=== PATIENT | female | born 1990 | race Caucasian/White ===

== ENCOUNTER → 2019-12-26 14:56 | Outpatient (CLI) | payer OTHER, SELFPAY ==
--- NOTE | ~2019-12-26 | US_ITS ---
US breast RT complete 12/26/2019 15:25 Indication: Follow-up right breast masses Procedure: High-resolution ultrasound of the right breast Comparison: Comparison to multiple prior studies sequentially, with oldest reviewed study dated 04/2018. Findings: At 4:00, 4 cm from the nipple there is an oval circumscribed hypoechoic mass with enhanced through transmission, parallel orientation and no internal vascularity. This mass measures 1.9 x 1.5 x 1.2 cm compared with 1.9 x 1.6 x 1.1 cm on prior examination. At 5:00, 3 cm from the nipple, there is an oval hypoechoic mass measuring 8 mm greatest dimension. There is parallel orientation, no signi ficant posterior features or internal vascularity. This mass is unchanged in size allowing for differ ences of technique. At 9:00, 6 cm from the nipple, there is an oval circumscribed hypoechoic mass wit h parallel orientation, circumscribed margins, no posterior acoustic features and no internal vascula rity measuring 10 x 9 x 6 mm, unchanged allowing for differences of technique. At 5:00, 5 cm from the nipple, there is an oval circumscribed hypoechoic mass with parallel orientation measuring 0.65 cm g reatest dimension, unchanged. Impression: 1: Stable right breast masses, likely benign. BI-RADS CATEGORY 3-PROBABLY BENIGN FINDING RECOMMENDATION: 6 month follow up recommended. Reviewed, dictated and finalized at location A. Impression: 1: Stable right breast masses, likely benign. BI-RADS CATEGORY 3-PROBABLY BENIGN FINDING RECOMMENDATION: 6 month follow up recommended.
== END ==
PROVIDERS: PCP Physician Assistant; Visit Provider Nurse Practitioner
DX: N63.10 Unspecified lump in the right breast, unspecified quadrant (principal)
CPT/HCPCS: 76641

== ENCOUNTER → 2020-05-02 15:53 | Outpatient (CLI) | payer OTHER, SELFPAY ==
--- NOTE | ~2020-05-02 | US_ITS ---
EXAMINATION: US OB <= 14 weeks fetus EXAM DATE: 05/02/2020 16:21 INDICATION: Uncertain dates . 1st trimester. TECHNIQUE: Pelvic obstetrical transabdominal sonogram was performed by a technologist. There are mu ltiple grayscale and Doppler images available for interpretation. There are no earlier studies of th is gestation for comparison. FINDINGS: Uterus measures 10.5 x 6.7 x 7.9 cm. There is intrauterine gestation sac. pole with heart rate confirmed at 158 beats per minute. The 4.6 cm crown-rump length corresponds to estimated gestational age by ultrasound of 11 weeks 3 days . There is no sonographic evidence of subchorioni c hemorrhage. Right ovary is morphologically normal, the left is not identified. IMPRESSION: Live intrauterine gestation, age by ultrasound 11 weeks 3 days, NO 11/18/2020. Reviewed, dictated and finalized at location A. LING HOOD OPERATOR
== END ==
PROVIDERS: PCP Family Medicine; Visit Provider Nurse Practitioner
DX: Z36.87 Encounter for antenatal screening for uncertain dates (principal); Z3A.11 11 weeks gestation of pregnancy
CPT/HCPCS: 76801

== ENCOUNTER → 2020-06-21 15:18 | Outpatient (CLI) | payer OTHER, SELFPAY ==
--- NOTE | ~2020-06-21 | US_ITS ---
EXAMINATION: US OB >= 14 weeks Fetus DATE: 06/21/2020 16:05 INDICATION: anatomic survey. TECHNIQUE: Real-time ultrasound of the pelvis was performed. COMPARISON: Ultrasound 05/02/2020 FINDINGS: There is a single living fetus in vertex presentation. The placenta is anterior, 3.9 cm from the cer vix. heart rate is 140 beats per minute (bpm). The amniotic fluid volume is subjectively normal . The following biometric data were obtained: Biparietal diameter (BPD): 4.2 cm; head circumference (HC): 16.2 cm; abdominal circumference (AC): 12 .9 cm; femur length (FL): 2.7 cm. These measurements are concordant. Estimated weight is 238 g +/- 36 g, which correlates with 35th percentile when 11/18/20 is used as estimated date of delivery. As single measurements, these parameters are each equal to the following estimated gestational ages w ith ranges of +/- 2 standard deviations: BPD: 18 weeks 6 days (17 weeks 1 days - 20 weeks 4 days). HC: 19 weeks 0 days (17 weeks 3 days - 20 weeks 3 days). AC: 18 weeks 3 days (16 weeks 3 days - 20 weeks 3 days). FL: 18 weeks 1 days (16 weeks 6 days - 19 weeks 4 days). estimated gestational age based solely on measurements from this exam is 18 weeks 4 days +/- 1 weeks 2 days. The cerebral ventricles, cerebellum, cisterna magna, nuchal fold, nose/lip, and visualized portions o f the spine are normal. The heart is normal. The diaphragm, stomach, kidneys, and bladder are normal. There are two umbilical arteries to yield a 3-vessel cord. The cord insertion is normal. IMPRESSION: 1. Single living fetus in vertex presentation. 2. Estimated weight is 238 g +/- 36 g, which correlates with 35th percentile when 11/18/20 is u sed as estimated date of delivery. This date was set by ultrasound on 05/02/2020. 3. Normal anatomic survey. Reviewed, dictated and finalized at location A. ORK APPLICATIONS SPECIALIST IMPRESSION: 1. Single living fetus in vertex presentation. 2. Estimated weight is 238 g +/- 36 g, which correlates with 35th percen tile when 11/18/20 is used as estimated date of delivery. This date was set by annamarie peters on 05/02/2020. 3. Normal anatomic survey.
== END ==
PROVIDERS: Visit Provider Obstetrics & Gynecology Gynecology
DX: Z36.89 Encounter for other specified antenatal screening (principal)
CPT/HCPCS: 76805

== ENCOUNTER → 2020-08-02 14:17 | Outpatient (CLI) | payer OTHER, SELFPAY ==
--- NOTE | ~2020-08-02 | US_ITS ---
US breast RT complete DATE: 08/02/2020 15:01 INDICATION: Six-month follow-up of right breast masses TECHNIQUE: High-resolution ultrasound imaging of the complete right breast COMPARISON: 12/26/2019 through 08/10/2017 right complete breast ultrasound examinations FINDINGS: New finding at 2:00 4 cm from nipple: Parallel circumscribed heterogeneous hypoechoic solid lesion with through transmission posterior enhancement, measuring 11.5 x 6 mm. This is likely benign , likely a benign fibroadenoma. 4:00 4 cm from nipple: Parallel hypoechoic solid lesion with through transmission, measuring 2.3 x 1. 4 x 1.9 cm, compared to 1.9 x 1.5 x 1.2 cm on 12/26/2019 ultrasound examination 5:00 3 cm from nipple: 4.3 x 5.1 mm hypoechoic lesion, previously 8 mm greatest dimension on 12/26/2019 ultrasound examination 5:00 5 cm from nipple: Parallel lesion measuring 0.65 mm greatest dimension on 12/26/2019 ultrasound ex amination is not evident on the current examination. 9:00 6 cm from nipple: Heterogeneous hypoechoic circumscribed solid lesion without internal vasculari ty or posterior shadowing, measuring 9 x 7 x 9 mm currently, compared to 10 x 9 x 6 mm on 12/26/2019 ul trasound examination IMPRESSION: BI-RADS Category 3: Probably benign findings Recommendation: Right breast ultrasound follow-up in 6-12 months Reviewed, dictated and finalized at Location A. Reviewed, dictated and finalized at location A.
== END ==
PROVIDERS: PCP Family Medicine; Visit Provider Obstetrics & Gynecology Gynecology
DX: R92.8 Other abnormal and inconclusive findings on diagnostic imaging of breast (principal)
CPT/HCPCS: 76641

== ENCOUNTER 2020-11-22 16:58 | Inpatient (IN) | payer OTHER, SELFPAY ==
[2020-11-22] VITALS (52 sets, daily range): BP systolic 118–187; BP diastolic 62–153; PULSE 78–100; TEMP 36.8–37.1; O2SAT 95–100; BMI 34.4
--- NOTE | 2020-11-22 18:00 | LDADM ---
This patient, Tessy Olmstead, was admitted to Labor/Delivery/Recovery 107 on 11/22/20 at 16:58. Plans for labor, pain management and were discussed with patient. Patient/family oriented to hospital policies and general routines including ID bracelet, bed and alarms, visiting hours, pain management, procedures, bathroom and other care routines, personal items, smoking policy, room service/diet and guest tray routines, security routines, and visiting hours. Patient/Family are encouraged to report perceived risks to care and to ask questions if they do not understand what they are told or what they should do. See OBIX for further documentation.
--- NOTE | 2020-11-22 18:27 | WPDOBADMIT ---
Obstetrics - Admit Note Admission Note: Presented for rule out labor cervix 1 cm in office yesterday and today noted to be 3 cm. admitted for variables noted on strip will proceed with induction of labor. record reviewed. No pertinent additions to the history and/or any subsequent changes in the physical findings that are not consistent with the expected course of the were found. Additions to the history and/or subsequent changes in the physical findings follow. None.
[2020-11-22 18:29] LABS: Basophils Percent Auto 0.2 % (0.2-1.2); Eosinophils Absolute Auto 0.1 K/mm3 (0-0.3); Eosinophils Percent Auto 0.5 % (0-4.4); Hematocrit 38.1 % (37.0-47.0); Immature Granulocyte Absolute 0.06 K/mm3 (0.00-0.031); Immature Granulocyte Percent A 0.4 % (0-0.5); Lymphocytes Absolute Auto 2.55 K/mm3 (0.9-3.2); Lymphocytes Percent Auto 17.2 % (18.3-44.2); Mean Corpuscular HGB Conc 34.1 g/dl (32-36); Mean Corpuscular Hemoglobin 29.4 pg (26-34); Mean Corpuscular Volume 86.2 fl (80-100); Mean Platelet Volume 9.9 fl (7.4-10.4); Monocytes Absolute Auto 0.9 K/mm3 (0.1-0.6); Monocytes Percent Auto 6.4 % (2.6-8.5); Neutrophils Absolute Auto 11.1 K/mm3 (1.3-6.7); Neutrophils Percent Auto 75.3 % (45.5-73.1); Platelet Count Result 268 k/mm3 (150-375); Red Blood Count 4.42 M/mm3 (4.2-5.4); Red Cell Distribution Width 12.3 % (11.5-14.5); White Blood Count 14.8 K/mm3 (4.5-10.0)
[2020-11-22] MEDS: LACTATED RINGERS 1,000 ML 125 ML IV CONT ×2 (18:32→22:07)
[2020-11-22] MEDS: AMPICILLIN 2 GM/NS 100 ML 2 GM/100 ML BAG IVPB (18:33)
[2020-11-22 18:55] LABS: Alanine Aminotransferase 24 U/L (4-35); Albumin Level 3.6 g/dL (3.5-5.1); Alkaline Phosphatase 180 U/L (38-126); Anion Gap 10 mmol/L (8-16); Aspartate Amino Transferase 30 U/L (14-36); Bilirubin,Total 0.3 mg/dL (0.2-1.3); Blood Urea Nitrogen 8 mg/dL (7-17); Calcium 9.3 mg/dL (8.4-10.2); Carbon Dioxide 20 mmol/L (22-30); Chloride 104 mmol/L (98-107); Estimated CRCL calculation 151 ml/min; Estimated Glomerular Filt Rate > 60; Glucose 110 mg/dL (65-110); Potassium 3.5 mmol/L (3.4-5.0); Sodium 134 mmol/L (137-145); Uric Acid 5.8 mg/dL (2.5-7.5)
[2020-11-22] MEDS: AMPICILLIN 1 GM/NS 50 ML 1 GM/50 ML BAG IVPB (22:29)
--- NOTE | 2020-11-22 22:59 | WPDANESEPP ---
Anes - Eval Pre Procedure Procedure: Labor epidural Date/Time: 11/22/20 22:59 Surgeon: Kiera Preop Diagnosis: Abd pain with contractions Pre Op Diagnosis: Labor Patient Data Age: 30 Gender: F Height: 1.63 m Weight: 91 kg Last Vital Signs Temp 98.8 F 11/22/20 18:45 Pulse 88 11/22/20 22:46 BP 135/86 11/22/20 22:46 Allergies Allergy/AdvReac Type Severity Reaction Status Date / Time No Known Allergies Allergy Verified 11/01/20 12:39 Home Medications Medication Instructions Recorded Confirmed Type prenat.vits,loren,[id number] 1 tablet PO DAILY 11/01/20 11/22/20 History [ #2] Laboratory Tests 11/22/20 11/22/20 11/22/20 18:20 18:20 18:20 WBC 14.8 K/mm3 H K/mm3 (4.5-10.0) RBC 4.42 M/mm3 M/mm3 (4.2-5.4) Hgb 13.0 g/dL g/dL (12.0-15.0) Hct 38.1 % % (37.0-47.0) MCV 86.2 fl fl (80-100) MCH 29.4 pg pg (26-34) MCHC 34.1 g/dl g/dl (32-36) RDW 12.3 % % (11.5-14.5) Plt Count 268 k/mm3 k/mm3 (150-375) MPV 9.9 fl fl (7.4-10.4) Immature Gran % (Auto) 0.4 % % (0-0.5) Neut % (Auto) 75.3 % H % (45.5-73.1) Lymph % (Auto) 17.2 % L % (18.3-44.2) [place] % (Auto) 6.4 % % (2.6-8.5) Eos % (Auto) 0.5 % % (0-4.4) Baso % (Auto) 0.2 % % (0.2-1.2) Lymph # (Auto) 2.55 K/mm3 K/mm3 (0.9-3.2) [place] # (Auto) 0.9 K/mm3 H K/mm3 (0.1-0.6) Eos # (Auto) 0.1 K/mm3 K/mm3 (0-0.3) Baso # (Auto) 0.0 K/mm3 K/mm3 (0.0-0.1) Abs Immat Gran (auto) 0.06 K/mm3 H K/mm3 (0.00-0.031) Absolute Neuts (auto) 11.1 K/mm3 H K/mm3 (1.3-6.7) Absolute Nucleated RBC 0.0 K/mm3 K/mm3 (0.0-0.012) Nucleated RBC % 0.0 % % (0.0-0.2) Sodium Potassium Chloride Carbon Dioxide Anion Gap BUN Creatinine Estim Creat Clear Calc Estimated GFR Glucose Uric Acid Calcium Total Bilirubin AST ALT Alkaline Phosphatase Total Protein Albumin RPR Pending Blood Type B Positive Antibody Screen Negative 11/22/20 18:34 WBC RBC Hgb Hct MCV MCH MCHC RDW Plt Count MPV Immature Gran % (Auto) Neut % (Auto) Lymph % (Auto) [place] % (Auto) Eos % (Auto) Baso % (Auto) Lymph # (Auto) [place] # (Auto) Eos # (Auto) Baso # (Auto) Abs Immat Gran (auto) Absolute Neuts (auto) Absolute Nucleated RBC Nucleated RBC % Sodium 134 mmol/L L mmol/L (137-145) Potassium 3.5 mmol/L mmol/L (3.4-5.0) Chloride 104 mmol/L mmol/L (98-107) Carbon Dioxide 20 mmol/L L mmol/L (22-30) Anion Gap 10 mmol/L mmol/L (8-16) BUN 8 mg/dL mg/dL (7-17) Creatinine 0.50 mg/dL L mg/dL (0.7-1.0) Estim Creat Clear Calc 151 ml/min ml/min Estimated GFR > 60 (59 - ) Glucose 110 mg/dL mg/dL (65-110) Uric Acid 5.8 mg/dL mg/dL (2.5-7.5) Calcium 9.3 mg/dL mg/dL (8.4-10.2) Total Bilirubin 0.3 mg/dL mg/dL (0.2-1.3) AST 30 U/L U/L (14-36) ALT 24 U/L U/L (4-35) Alkaline Phosphatase 180 U/L H U/L (38-126) Total Protein 6.0 g/dL L g/dL (6.3-8.2) Albumin 3.6 g/dL g/dL (3.5-5.1) RPR Blood Type Antibody Screen Patient hx anesthesia problems: none Family hx anesthesia problems: none [facility] Past Medical History Medical History Arrhythmia Fibroadenoma Migraine Obesity and not yet delivered Surgical History Surgical History (Reviewed 11/22/20 @ 23:00
[2020-11-23] VITALS (60 sets, daily range): BP systolic 104–178; BP diastolic 50–163; PULSE 75–139; RESP 16–18; TEMP 36.4–36.9; O2SAT 94–100
--- NOTE | 2020-11-23 03:07 | PM.OBPRVD ---
OB - Delivery Note Procedure Delivery date: 11/23/20 Procedure: Intrapartal events: None Induction method: none Delivery monitor: external FHT and external uterine Route of delivery: Laceration Description: Perineal - 2nd Degree Delivery repair: vicryl Specimen: No Quantitative Blood Loss (ml): 260 Anesthesia type: Local Disposition: floor Baby Date of : 11/23/20 Time of : 02:42 Weeks of gestation at delivery: 40 Infant gender: Female Weight (pounds): 7 Weight (ounces): 3 presentation: vertex position: Left Occiput Anterior Placenta delivery description: Spontaneous cord vessel description: 3 Vessels score one minute: 9 score five minutes: 9
[2020-11-23] MEDS: OXYTOCIN 30 UNITS/NS 500 ML 30 UNITS/500 ML BAG 125 UNITS IV CONT (03:29)
[2020-11-23] MEDS: IBUPROFEN 600 MG TABLET PO ×2 (07:51→17:10)
[2020-11-23] MEDS: DOCUSATE SODIUM 100 MG CAPSULE PO (07:51)
[2020-11-23] MEDS: MULTIVIT/MIN/PREN/FOL AC/IRON TABLET 1 TAB PO (07:51)
[2020-11-24] MEDS: IBUPROFEN 600 MG TABLET PO ×2 (03:09→12:06)
[2020-11-24 04:40] LABS: Hematocrit 31.8 % (37.0-47.0); Hemoglobin 10.9 g/dL (12.0-15.0)
--- NOTE | 2020-11-24 08:18 | WPDANLDPN2 ---
Anes-Prog Note L&D Date/Time: 11/24/20 08:18 Comfortable throughout: labor and delivery Neuraxial method: epidural Epidural/Spinal procedure site: clean & non-tender Neuro status: Neuro function grossly intact. Cardiovascular status: normal Respiratory status: normal Airway patency: baseline Mental status: baseline Post-Op hydration status: normal Vital Signs: Last Vital Signs Temp 36.4 C L 11/23/20 23:40 Pulse 80 11/23/20 23:40 Resp 16 11/23/20 23:40 BP 128/76 11/23/20 23:40 Pulse Ox 99 11/23/20 23:40 Pain score (VAS): 3 Post-procedural complaints: none Patient feedback: Patient satisfied with anesthetic care.
[2020-11-24 10:30] VITALS: BP 124/68; PULSE 64; PULSE 80; RESP 16; TEMP 36.8; O2SAT 99
[2020-11-24] MEDS: DOCUSATE SODIUM 100 MG CAPSULE PO (12:06)
[2020-11-24] MEDS: MULTIVIT/MIN/PREN/FOL AC/IRON TABLET 1 TAB PO (12:07)
[2020-11-24] MEDS: WITCH HAZEL 40 PADS 1 PAD TOPICAL (12:07)
[2020-11-24] MEDS: BENZOCAINE 20% AER SPR (*SP) 56 GM CAN 1 SPRAY TOPICAL (12:07)
[2020-11-24 20:23] VITALS: BP 131/69; PULSE 82; RESP 16; TEMP 36.7
--- NOTE | 2020-11-24 23:49 | PM.OBPNVD ---
OB - PN: Subj Subjective Date/time seen: 11/24/20 23:49 doing well no complaints OB - PN: Obj Data Labs CBC & Chem 7: 11/24/20 03:06 11/22/20 18:34 Labs: Laboratory Results - last 24 hr 11/24/20 03:06 Hgb 10.9 L Hct 31.8 L OB - PN A/P Assessment and Plan (1) (normal spontaneous vaginal delivery): Code(s): O80 - Encounter for full-term uncomplicated delivery Status: Acute Assessment and Plan: continue with pp care Time Spent With Patient Time: Total time spent is greater than 50% in coordination of care (as documented) at patient's floor/unit and/or counseling patient: Exam Narrative: ffm below umbilicus
[2020-11-25 08:00] VITALS: BP 130/75; BP 131/69; PULSE 73; PULSE 82; RESP 16; RESP 18; TEMP 36.2; TEMP 36.7; O2SAT 99
[2020-11-25 08:04] LABS: Rapid Plasma Reagin Non-Reactive (NonReactive)
[2020-11-25] MEDS: BENZOCAINE 20% AER SPR (*SP) 56 GM CAN 1 SPRAY TOPICAL (08:04)
[2020-11-25] MEDS: IBUPROFEN 600 MG TABLET PO (08:04)
[2020-11-25] MEDS: WITCH HAZEL 40 PADS 1 PAD TOPICAL (08:04)
[2020-11-25] MEDS: MULTIVIT/MIN/PREN/FOL AC/IRON TABLET 1 TAB PO (08:04)
[2020-11-25] MEDS: DOCUSATE SODIUM 100 MG CAPSULE PO (08:04)
--- NOTE | 2020-11-25 09:04 | PM.OBPNVD ---
OB - PN: Subj Subjective Date/time seen: 11/25/20 09:04 Patient comments: no complaints and pain well controlled baby status: doing well OB - PN: Obj Data Labs CBC & Chem 7: 11/24/20 03:06 11/22/20 18:34 Labs: Laboratory Results - last 24 hr 11/22/20 18:20 RPR Non-reactive OB - PN A/P Plan day: 2 Plan: routine care, discharge home, follow up 6 weeks and other (plans condoms) Time Spent With Patient Time: Total time spent is greater than 50% in coordination of care (as documented) at patient's floor/unit and/or counseling patient: Exam : Bimanual exam- vagina & uterus: other (Uterus firm, nt @U)
--- NOTE | 2020-11-25 09:15 | PC.NURSE ---
Mother called out for assist with feeding, reporting is sleepy and difficult to maintain latch. Mother is supplementing after each feeding and will pump. Mother is pumping without issue and has a pump for home use. is able to freely thrust tongue past gum ridge and flange both lips. Skin is intact on both nipples, no redness and bruising noted. Nipple care reviewed of lanolin after feedings, warm compresses as needed. Reviewed feeding cues, frequencies, duration of feedings, feeding elimination flow sheet, and signs of adequate intake. Demonstrated stimulation techniques to wake infant for feeding. Assisted with infant to breast. Reviewed positioning/alignment in cross cradle, holding breast in ?U? hold and guided asymmetrical latch on. Discussed rational for each. able to latch correctly. Infant nursed eagerly with steady draws for short bursts and occasional swallowing noted. Suggested mother stimulate while feeding to increase stimulate, increase intake and to assist with maintaining deep latch. Reviewed signs of a correct latch, effective nursing and suck swallow ratio. Infant would slip to shallow latch, mother reports tenderness. Demonstrated how to adjust latch more deeply while feeding. Mother reports she can feel change in latch and has no tenderness. Mother feels has had a good feeding and has maintained latch more than previous feeds. Stressed to keep infant awake to assist with maintaining latch. responded to increased nursing with stimulation. Discussed the effective vs ineffective feeding, advised infant has good bursts of rhythmic draws and is not nursing long enough for adequate milk transfer. Mother will continue to supplement until is maintaining latch and has more effective feeding. Advised to increase infant supplementation to infant desires. may not wake to feed for 4 hours with increased supplement. Mother will continue to pump after infant feedings and increase pumping to 20 minutes if pumping every 4 hours. Discussed signs infant may be ready to decrease/discontinue supplementation. Advised not to discontinue until is seen by ICP, follow up RN or LC for pre/post feeding evaluation. Mother is feeding as required and waking infant to feed if needed. Infant is currently meeting outcomes for weight, output, jaundice and feeding frequencies. Mother states she feels confident to continue current feeding plan of supplementing after breastfeedings and pumping at home. Reviewed transition to breast milk, signs of adequate intake, and engorgement/relief. Instructed to call ICP if intake/output less than required. Reviewed regular medications mother is taking. Information provided per Shala. Reviewed community resources on the [facility] website and in the Mom/Baby guide. Information on outpatient services provided. Mother has no further questions at this time.
--- NOTE | 2020-11-25 09:18 | PC.NURSE ---
Patient viewed the discharge video Mother & Baby Care, The First Two Weeks . Patient was given the opportunity and encouraged to ask questions. Patient verbalized understanding of information shared and has been given the mother/baby guide for home reference.
[2020-11-27 09:44] VITALS: BP 134/71; PULSE 81; RESP 16; TEMP 36.6; O2SAT 100
--- NOTE | 2021-02-03 12:02 | PM.OBDSVD ---
DS: Admitting Diagnosis Discharge Date 11/25/20 Admitting Diagnosis labor OB - DS: Summary OB Procedures : NST OB Procedures Intrapartum: Spontaneous Vag Delivery OB Procedures: : None Time Spent with Patient Time attestation: Total time spent providing and/or coordinating discharge services: Discharge Plan Discharge Attending physician on discharge: Willie Qureshi Consulting providers: Irma Christian Discharging Clinician: Willie Qureshi Patient Disposition: Home, Self-Care Activity: may shower and pelvic rest Diet: regular Discharge Instructions: Education: Mom and Baby Guide Given to: Mother Follow-Up: Call your delivering provider's office for an appointment to be seen in: 4 Weeks [facility] follow[facility]. Appointment Date/Time: Friday, November 27, 2020 at 9:00 am What to expect at your follow-up visit: Call [phone] if you are unable to keep your appointment time. BREAST CARE: * Wear a snug supportive bra. * For engorgement discomfort: Breast Feeding: * Apply warm moist washcloths * Express milk as needed to relieve engorgement * Wear loose clothing Bottle Feeding: * May apply ice packs * For sore nipples: * Identify correct latch-on * Apply warm moist washcloths before and after nursing * Air dry nipples after nursing * May apply Lansinoh cream to nipples EPISIOTOMY/PERINEAL CARE: * Until bleeding stops, use your zenaida bottle after urinating * Change your pad frequently throughout the day * You may take sitz baths several times a day (fill your bathtub with warm water and soak for 20 minutes.) Do NOT bathe in the water * No tub baths until seen by your physician - You may shower ACTIVITY: * Rest as much as possible. * Do not exercise or lift anything heavier than your baby (such as laundry or other children.) * Avoid stairs or driving as much as possible. * Do not put anything into the vagina. No douching, tampons, or sexual activity until seen by physician. NOTIFY PHYSICIAN IF YOU HAVE ANY QUESTIONS OR IF ANY OF THE FOLLOWING SYMPTOMS OCCUR: * If your episiotomy becomes red, swollen, or more painful than what you have experienced in the hospital. * If your vaginal bleeding becomes foul smelling. * If your vaginal bleeding becomes more heavy than a period or if your bleeding changes from pink to bright red. However, you may pass an occasional walnut-sized clot once or twice for the first week . * If you experience a sharp, shooting pain in you calves. * If you discover a hard, reddened area on your breast or if you experience flu-like symptoms. DIET: * Eat regular, well-balanced meals. * Drink plenty of fluids daily. If , drink to thirst. Patient Instructions: Antibiotic Form Stand Alone Forms: General Discharge Information Follow-up/Referrals: Irma Christian MD [Physician] - 4 Weeks Discharge Medications: New ergocalciferol (vitamin D2) [Vitamin D2] 1,250 mcg (50,000 unit) capsule 1,250 mcg PO WEEKLY Qty: 12 RF: 4 Continued prenat.vits,loren,[id number] Tablet 1 tablet PO DAILY RF: 0 Date of admission: 11/22/20 16:58 Primary Care Provider: Ora Hernandez Admitting Provider: Willie Qureshi Attending physician on admission: Willie Qureshi Condition: Stable
== END 2020-11-25 12:46 | disposition home or self-care (01) | DRG 807 ==
LOC: ANHLDR 11-23 03:06 → ANHOB2 11-23 05:55
PROVIDERS: Admitting Provider Obstetrics & Gynecology; PCP Family Medicine; Visit Provider Obstetrics & Gynecology
DX: O99.824 Streptococcus B carrier state complicating childbirth (principal); Z37.0 Single live birth; O70.1 Second degree perineal laceration during delivery; O77.0 Labor and delivery complicated by meconium in amniotic fluid; O69.81X0 Labor and delivery complicated by cord around neck, without compression, not applicable or unspecified; Z3A.40 40 weeks gestation of pregnancy
CPT/HCPCS: 36415; 80053; 84550; 85014; 85018; 85025; 86592; 86850; 86900; 86901; A9270; J0290; J2590; J2795; J7120

== ENCOUNTER → 2021-01-31 14:34 | Outpatient (CLI) | payer OTHER, SELFPAY ==
--- NOTE | ~2021-01-31 | US_ITS ---
EXAMINATION: US breast RT complete HISTORY: Follow-up for probably benign right breast masses TECHNIQUE: Complete right breast ultrasound is performed including all four quadrants and the subareo lar breast COMPARISON: 10/24/2018, 03/10/2019, 12/26/2019, 08/02/2020 FINDINGS: The masses at the 5:00 and 9:00 location are stable to decreased in size, consistent with b enign findings. There is a 2.0 x 1.4 cm oval, circumscribed, parallel, complex cystic and solid mass at the 4:00 location 4 cm from the nipple demonstrates posterior acoustical enhancement and no internet researcher al vascularity. There is a 2.6 x 1.6 cm oval, circumscribed, hypoechoic mass with posterior fusion en hancement and peripheral vascularity at the 2:00 location 4 cm from the nipple. IMPRESSION: Probably benign right breast masses. Given that the patient is currently , findings could b e related to breast-feeding. Short-term follow-up ultrasound in three months is recommended BI-RADS category 3, probably benign findings. Reviewed, dictated and finalized at location A. IMPRESSION: Probably benign right breast masses. Given that the patient is currently postpa rtum, findings could be related to breast-feeding. Short-term follow-up ultraso und in three months is recommended BI-RADS category 3, probably benign findings.
== END ==
PROVIDERS: Visit Provider Obstetrics & Gynecology Gynecology
DX: R92.8 Other abnormal and inconclusive findings on diagnostic imaging of breast (principal)
CPT/HCPCS: 76641

== ENCOUNTER → 2021-05-05 15:02 | Outpatient (CLI) | payer OTHER, SELFPAY ==
--- NOTE | ~2021-05-05 | US_ITS ---
US breast RT limited 05/05/2021 15:27 Indication: Breast lump Procedure: High-resolution ultrasound of the right breast Comparison: Ultrasound dated 01/31/2021 Findings: At 2:00, 4 cm from the nipple there is an oval hypoechoic mass with heterogeneous internal echotexture, parallel orientation and areas of posterior shadowing. This mass measures 2.8 x 2.3 x 2. 3 cm compared with 2.6 x 1.8 x 1.6 cm on prior examination. At 4:00, 4 cm from the nipple, there is a complex partially cystic mass measuring 2.2 x 1.4 x 1.9 cm compared with 2 x 2.1 x 1.4 cm on prior e xamination. 6 is not significantly changed. There is parallel orientation, posterior acoustic enhance ment. At 9:00, 6 cm from the nipple, there is a hypoechoic mass with some irregular margins and mixed posterior attenuation measuring 8 x 7 x 8 mm compared with 10 x 7 x 9 mm on prior examination. There is marginal vascularity and mixed posterior attenuation. Impression: 1: Enlarging right breast mass at 2:00, 4 cm from the nipple. Ultrasound-guided biopsy recommended. 2: Additional right breast masses are stable, likely benign. Six-month follow-up right breast ultraso und for these masses recommended. BI-RADS CATEGORY 4-SUSPICIOUS ABNORMALITY Reviewed, dictated and finalized at location A. [employer] COORDINATOR Impression: 1: Enlarging right breast mass at 2:00, 4 cm from the nipple. Ultrasound-guided biopsy recommended. 2: Additional right breast masses are stable, likely benign. Six-month follow-u p right breast ultrasound for these masses recommended. BI-RADS CATEGORY 4-SUSPICIOUS ABNORMALITY
== END ==
PROVIDERS: PCP Obstetrics & Gynecology Gynecology; Visit Provider Obstetrics & Gynecology Gynecology
DX: N63.10 Unspecified lump in the right breast, unspecified quadrant (principal); R92.8 Other abnormal and inconclusive findings on diagnostic imaging of breast
CPT/HCPCS: 76642

== ENCOUNTER → 2021-05-10 07:31 | Outpatient (CLI) | payer OTHER, SELFPAY ==
[2021-05-10 20:04] LABS: Influenza A QL RT-PCR Negative (Negative); Influenza B QL RT-PCR Negative (Negative); SARS-CoV-2 RNA PCR Negative
== END ==
PROVIDERS: PCP Family Medicine; Visit Provider Physician Assistant
DX: R50.9 Fever, unspecified (principal); Z20.822 Contact with and (suspected) exposure to COVID-19
CPT/HCPCS: 87502; 87804; C9803; U0003; U0005

== ENCOUNTER → 2022-02-27 15:45 | Outpatient (CLI) | payer OTHER, SELFPAY ==
--- NOTE | ~2022-02-27 | US_ITS ---
EXAMINATION: US OB <= 14 weeks fetus DATE: 02/27/2022 16:03 INDICATION: Uncertain dating of during first trimester TECHNIQUE: Real-time pelvic ultrasound utilizing transabdominal probe was performed. The jess [place] radiologist was not present for the study. COMPARISON: None. FINDINGS: The uterus measures 9.8 x 7.5 x 7.8 cm. There is an intrauterine gestational sac. A yolk sac and fet al pole are identified. The crown rump length measures 2.5 cm, which correlates with an estimated ges tational age of 9 weeks and 1 days. heart motion is identified measuring 178 beats per minute ( bpm) by M-mode Doppler. The right and left ovaries are not visualized. There is no free fluid in the pelvis. IMPRESSION: 1. Single living fetus with heart rate of 178 bpm. 2. Gestational age by ultrasound of 9 weeks 1 day(s) +/- 6 day(s) with ultrasound estimated date of delivery (NO) of 10/01/2022. Reviewed, dictated and finalized at location B. IMPRESSION: 1. Single living fetus with heart rate of 178 bpm. 2. Gestational age by ultrasound of 9 weeks 1 day(s) +/- 6 day(s) with ultraso und estimated date of delivery (NO) of 10/01/2022.
== END ==
PROVIDERS: PCP Family Medicine; Visit Provider Advanced Practice Midwife
DX: Z36.87 Encounter for antenatal screening for uncertain dates (principal); Z3A.09 9 weeks gestation of pregnancy
CPT/HCPCS: 76801

== ENCOUNTER → 2022-05-18 08:23 | Outpatient (CLI) | payer OTHER, SELFPAY ==
--- NOTE | ~2022-05-18 | US_ITS ---
EXAMINATION: US OB /maternal detail DATE: 05/18/2022 09:13 INDICATION: Encounter for screening, unspecified. TECHNIQUE: Real-time ultrasound of the pelvis was performed. COMPARISON: Ultrasound 02/27/2022 FINDINGS: There is a single living fetus in vertex presentation. The placenta is anterior, 7.7 cm from the cer vix. heart rate is 142 beats per minute (bpm). The amniotic fluid volume is subjectively normal . The cervical length is 3.2 cm on transabdominal images, which is normal. The following biometric data were obtained: Biparietal diameter (BPD): 4.9 cm; head circumference (HC): 18.3 cm; abdominal circumference (AC): 16 .0 cm; femur length (FL): 3.3 cm. These measurements are concordant. Estimated weight is 371 g +/- 56 g, which correlates with the 52nd percentile when 10/01/22 is us ed as estimated date of delivery. As single measurements, these parameters are each equal to the following estimated gestational ages: BPD: 20 weeks 5 days. HC: 20 weeks 5 days. AC: 21 weeks 1 days. FL: 20 weeks 2 days. estimated gestational age based solely on measurements from this exam is 20 weeks 5 days +/- 1 weeks 3 days. The cerebral ventricles, cerebellum, cisterna magna, nuchal fold, lip, and visualized portions of the spine are normal. The heart is normal. The diaphragm, stomach, kidneys, and bladder are normal. Ther e are two umbilical arteries to yield a 3-vessel cord. The cord insertion is normal. IMPRESSION: 1. Single living fetus in vertex presentation. 2. Estimated weight is 371 g +/- 56 g, which correlates with the 52nd percentile when 10/01/22 i s used as estimated date of delivery. This date was set by ultrasound on 02/27/2022. 3. Normal anatomic survey. Reviewed, dictated and finalized at location A. ER IMPRESSION: 1. Single living fetus in vertex presentation. 2. Estimated weight is 371 g +/- 56 g, which correlates with the 52nd pe rcentile when 10/01/22 is used as estimated date of delivery. This date was set b y ultrasound on 02/27/2022. 3. Normal anatomic survey.
== END ==
PROVIDERS: PCP Family Medicine; Visit Provider Obstetrics & Gynecology Gynecology
DX: Z36.9 Encounter for antenatal screening, unspecified (principal)
CPT/HCPCS: 76805

== ENCOUNTER 2022-09-25 22:10 | Inpatient (IN) | payer OTHER, SELFPAY ==
[2022-09-25] VITALS (17 sets, daily range): BP systolic 100–150; BP diastolic 46–120; PULSE 83–124; O2SAT 92–99; BMI 31.8
[2022-09-25] MEDS: ONDANSETRON INJ 4 MG/2 ML VIAL IV PUSH (22:40)
[2022-09-25] MEDS: AMPICILLIN 2 GM/NS 100 ML 2 GM/100 ML BAG IVPB (23:00)
--- NOTE | 2022-09-25 23:05 | LDADM ---
This patient, Tessy Olmstead, was admitted to Labor/Delivery/Recovery 106 on 09/25/22 at 22:10. Plans for labor, pain management and were discussed with patient. Patient/family oriented to hospital policies and general routines including ID bracelet, bed and alarms, visiting hours, pain management, procedures, bathroom and other care routines, personal items, smoking policy, room service/diet and guest tray routines, security routines, and visiting hours. Patient/Family are encouraged to report perceived risks to care and to ask questions if they do not understand what they are told or what they should do. See [facility]BIX for further documentation.
[2022-09-25 23:08] LABS: Basophils Percent Auto 0.2 % (0.2-1.2); Eosinophils Absolute Auto 0.1 K/mm3 (0-0.3); Hematocrit 40.1 % (37.0-47.0); Hemoglobin 14.2 g/dL (12.0-15.0); Immature Granulocyte Absolute 0.06 K/mm3 (0.00-0.031); Immature Granulocyte Percent A 0.4 % (0-0.5); Lymphocytes Absolute Auto 3.65 K/mm3 (0.9-3.2); Lymphocytes Percent Auto 25.3 % (18.3-44.2); Mean Corpuscular HGB Conc 35.4 g/dl (32-36); Mean Corpuscular Hemoglobin 30.1 pg (26-34); Mean Corpuscular Volume 85.1 fl (80-100); Mean Platelet Volume 9.4 fl (7.4-10.4); Monocytes Absolute Auto 0.7 K/mm3 (0.1-0.6); Monocytes Percent Auto 4.6 % (2.6-8.5); Neutrophils Absolute Auto 9.9 K/mm3 (1.3-6.7); Neutrophils Percent Auto 68.5 % (45.5-73.1); Platelet Count Result 279 k/mm3 (150-375); Red Blood Count 4.71 M/mm3 (4.2-5.4); Red Cell Distribution Width 12.8 % (11.5-14.5); White Blood Count 14.4 K/mm3 (4.5-10.0)
[2022-09-25] MEDS: LACTATED RINGERS 1,000 ML 125 ML IV CONT (23:13)
--- NOTE | 2022-09-25 23:48 | WPDANESEPPF ---
Anes - Initial Pre Proc Eval Procedure: Labor Epidural Date/Time: 09/25/22 23:28 Surgeon: Irma Christian MD Pre Op Diagnosis: Labor Pain Pre Op Diagnosis: labor Patient Data Age: 32 Gender: F Height: 1.63 m Weight: 84 kg Last Vital Signs Pulse 89 09/25/22 23:47 BP 119/71 09/25/22 23:47 Pulse Ox 99 09/25/22 23:47 Allergies Allergy/AdvReac Type Severity Reaction Status Date / Time No Known Allergies Allergy Verified 09/25/22 23:10 Home Medications Medication Instructions Recorded Confirmed Type prenat.vits,loren,aqn-[id number] 1 tablet PO DAILY 11/01/20 09/25/22 History escitalopram oxalate 10 mg tablet 10 mg PO DAILY 08/07/22 09/25/22 History (Lexapro) Laboratory Tests 09/25/22 22:58 WBC 14.4 H K/mm3 (4.5-10.0) RBC 4.71 M/mm3 (4.2-5.4) Hgb 14.2 D g/dL (12.0-15.0) Hct 40.1 % (37.0-47.0) MCV 85.1 fl (80-100) MCH 30.1 pg (26-34) MCHC 35.4 g/dl (32-36) RDW 12.8 % (11.5-14.5) Plt Count 279 k/mm3 (150-375) MPV 9.4 fl (7.4-10.4) Immature Gran % (Auto) 0.4 % (0-0.5) Neut % (Auto) 68.5 % (45.5-73.1) Lymph % (Auto) 25.3 % (18.3-44.2) [place] % (Auto) 4.6 % (2.6-8.5) Eos % (Auto) 1.0 % (0-4.4) Baso % (Auto) 0.2 % (0.2-1.2) Lymph # (Auto) 3.65 H K/mm3 (0.9-3.2) [place] # (Auto) 0.7 H K/mm3 (0.1-0.6) Eos # (Auto) 0.1 K/mm3 (0-0.3) Baso # (Auto) 0.0 K/mm3 (0.0-0.1) Abs Immat Gran (auto) 0.06 H K/mm3 (0.00-0.031) Absolute Neuts (auto) 9.9 H K/mm3 (1.3-6.7) Absolute Nucleated RBC 0.0 K/mm3 (0.0-0.012) Nucleated RBC % 0.0 % (0.0-0.2) RPR Pending Blood Type B Positive Antibody Screen Pending Patient hx anesthesia problems: none Family hx anesthesia problems: none Results Review: All pre-operative results and documents have been reviewed as part of the pre-operative evaluation. [facility] Past Medical History Medical History Arrhythmia Fibroadenoma Migraine (normal spontaneous vaginal delivery) Obesity and not yet delivered Surgical History Surgical History History of bladder surgery Family History Family History Mother Diabetes mellitus Carcinoma of colon Grandparent Family history of malignant neoplasm of breast Family history of malignant neoplasm of brain Hypertension Leukemia Alzheimer disease Cerebrovascular accident Family history of cardiovascular disease Father Carcinoma of colon, Onset Age: 50 Social History Social History Smoking status: Never smoker Second hand tobacco smoke exposure: No Alcohol intake: never Substance use: never Substance use type: does not use Lack of Transportation: No Lack of Food: Never True Current Housing: I Have Housing Concerned About Future Housing: No Difficulty Paying Gas/Electric Bills: No Difficulty Paying for Meds: No Currently Unemployed: No Education: Master's Degree or Higher Difficulty w/ Childcare or Family Care: No Living arrangements: with family Gender identity (if verbalized by the patient): Female Sexual Orientation (if Verbalized by the Patient): Straight or Heterosexual Spiritual care concerns: No Agree to blood products: Yes Anes - Eval Final PreProcedure Day of Procedure 09/25/22 23:48 Patient weight: normal Heart: regular rate and rhythm Lungs: clear to auscultation Airway: Mallampati scale class II Neurological: alert and oriented ASA classification: II Emergent: no Anesthetic plan: proceed Anesthesia type and monitoring: regional epidural and standard monitoring Results Review: All pre-operative results and documents have been reviewed as part of
--- NOTE | 2022-09-25 23:50 | WPDANESEPN ---
Anes - Epidural Procedure Note Date/Time: 09/25/22 23:50 Consent: I have discussed with the patient/family/POA, the placement of an epidural catheter and the use of epidural narcotic/local anesthetic for labor analgesia and/or postoperative pain management, including associated potential risks, benefits, complications and side effects. I have discussed alternative methods of labor analgesia and/or postoperative pain management. The patient/family/POA, understand(s) and wish(es) to proceed with epidural narcotic/local anesthetic for labor analgesia and/or postoperative pain management. Time-Out: A pre-procedural Time-Out was completed immediately before starting the procedure and confirmed: Patient Identification, Site, Procedure, Patient Position and the Availability of Requisite Equipment. Clinical Indications: Labor Pain Epidural Insertion Note Patient position: sitting Skin prep: chlorhexidine and sterile drape Needle: 18g Tuohy-Schliff Catheter: 20g Unstyleted Technique: Loss of resistance. Level of insertion: L3/4 Catheter skin kai (cm): 10 Length in epidural space (cm): 5 Skin anesthesia: lidocaine 1% Test dose: 1.5% Lidocaine with [id number] Epi, negative for subarachnoid Inj and negative for intravascular Inj Time of test dose: 23:39 Observations: tolerated well Complications: none
[2022-09-26] VITALS (25 sets, daily range): BP systolic 86–151; BP diastolic 51–113; PULSE 66–100; RESP 14–18; TEMP 36.3–36.9; O2SAT 98–100
[2022-09-26] MEDS: OXYTOCIN 30 UNITS/NS 500 ML 30 UNITS/500 ML BAG 999 UNITS IV CONT (00:15)
--- NOTE | 2022-09-26 00:25 | WPDOBADMIT ---
Obstetrics - Admit Note Admission Note: record reviewed. No pertinent additions to the history and/or any subsequent changes in the physical findings that are not consistent with the expected course of the were found. Additions to the history and/or subsequent changes in the physical findings follow. Here in active labor. On my arrival, SROM and c/p. FHT's with variable decels.
--- NOTE | 2022-09-26 00:26 | PM.OBPRVD ---
OB - Delivery Note Procedure Delivery date: 09/26/22 Procedure: Induction method: None Delivery monitor: External FHT and External Uterine Route of delivery: Laceration Description: Perineal - 2nd Degree Delivery repair: vicryl (3-0) Specimen: Yes (placenta) Quantitative Blood Loss (ml): 200 Anesthesia type: Epidural Disposition: Floor [place] Baby Date of : 09/26/22 Weeks of gestation at delivery: 39 Infant gender: Female presentation: vertex position: Right Occiput Anterior Placenta delivery description: Spontaneous Cord Vessel Description: 3 Vessels and Delayed Cord Clamping score one minute: 8 score five minutes: 9 Narrative: spontaneous cry immediately therefore placed on maternal abdomen
--- NOTE | 2022-09-26 00:27 | PM.OBDSVD ---
DS: Admitting Diagnosis Discharge Date 09/28/22 Admitting Diagnosis Labor at 39 1/7 wk DS: Discharge Diagnosis Discharge Diagnosis (1) (normal spontaneous vaginal delivery): Code(s): O80 - Encounter for full-term uncomplicated delivery Status: Acute OB - DS: Summary OB Procedures : Ultrasound OB Procedures Intrapartum: Spontaneous Vag Delivery OB Procedures: : None Peripartum Data Infant Delivery Method: Natural Vaginal Laceration Description: Perineal - 2nd Degree complications: none Status at Discharge Functional status at discharge: independent ambulation Overall status at discharge: patient is progressing back to baseline Time Spent with Patient Time attestation: Total time spent providing and/or coordinating discharge services: DS: Data Data Completed and Pending Labs on day of discharge: Labs from last 24 hours 09/25/22 22:58 WBC 14.4 H RBC 4.71 Hgb 14.2 D Hct 40.1 MCV 85.1 MCH 30.1 MCHC 35.4 RDW 12.8 Plt Count 279 MPV 9.4 Immature Gran % (Auto) 0.4 Neut % (Auto) 68.5 Lymph % (Auto) 25.3 [place] % (Auto) 4.6 Eos % (Auto) 1.0 Baso % (Auto) 0.2 Lymph # (Auto) 3.65 H [place] # (Auto) 0.7 H Eos # (Auto) 0.1 Baso # (Auto) 0.0 Abs Immat Gran (auto) 0.06 H Absolute Neuts (auto) 9.9 H Absolute Nucleated RBC 0.0 Nucleated RBC % 0.0 RPR Pending Blood Type B Positive Antibody Screen Pending Discharge Plan Discharge Attending physician on discharge: Irma Christian Discharging Clinician: Irma Christian Anticipated Discharge Date/Time: 09/27/22 12:28 Patient Disposition: Home, Self-Care Activity: may shower and pelvic rest Diet: regular Patient Instructions: Antibiotic Form Stand Alone Forms: General Discharge Information Follow-up/Referrals: Irma Christian MD [Physician] - 6 Weeks Discharge Medications: No Action escitalopram oxalate [Lexapro] 10 mg tablet 10 mg PO DAILY prenat.vits,loren,[id number] Tablet 1 tablet PO DAILY Date of admission: 09/25/22 22:10 Primary Care Provider: Ora Hernandez Admitting Provider: Irma Christian Attending physician on admission: Irma Christian Condition: Stable
[2022-09-26] MEDS: OXYTOCIN 30 UNITS/NS 500 ML 30 UNITS/500 ML BAG 125 UNITS IV CONT (00:45)
[2022-09-26] MEDS: BENZOCAINE 20% AER SPR (*SP) 56 GM CAN 1 SPRAY (04:00)
[2022-09-26] MEDS: WITCH HAZEL 40 PADS 1 PAD (04:00)
[2022-09-26] MEDS: ACETAMINOPHEN 325 MG TABLET 650 MG (04:00)
--- NOTE | 2022-09-26 04:10 | OBPPTRN ---
Patient transferred to post room #285 via wheelchair. Support person present. Oriented to unit, room, information board, rooming in, admission packet and security measures. Patient verbalizes understanding.
[2022-09-26] MEDS: IBUPROFEN 600 MG TABLET PO ×2 (07:55→19:33)
[2022-09-26] MEDS: MULTIVIT/MIN/PREN/FOL AC/IRON TABLET 1 TAB PO (07:55)
[2022-09-27 00:10] VITALS: BP 126/86; PULSE 73; RESP 16; TEMP 37.1; O2SAT 99
[2022-09-27 05:33] LABS: Hematocrit 39.7 % (37.0-47.0); Hemoglobin 13.1 g/dL (12.0-15.0)
[2022-09-27] MEDS: MULTIVIT/MIN/PREN/FOL AC/IRON TABLET 1 TAB PO (08:18)
[2022-09-27] MEDS: DOCUSATE SODIUM 100 MG CAPSULE PO (08:18)
[2022-09-27 09:00] VITALS: BP 135/82; RESP 18; TEMP 36.7; O2SAT 98
--- NOTE | 2022-09-27 10:02 | PM.OBPNVD ---
OB - PN: Subj Subjective Date/time seen: 09/27/22 10:02 Patient comments: pain well controlled, tolerating diet and other (Decreasing lochia.) baby status: doing well and nursing well [place] feeding status: exclusively breast feeding OB - PN: Obj Data Labs 09/27/22 04:56 Labs: Laboratory Results - last 24 hr 09/27/22 04:56 Hgb 13.1 Hct 39.7 OB - PN A/P Plan day: 1 Plan: routine care Comments: Patient doing well. Time Spent With Patient Time: Total time spent is greater than 50% in coordination of care (as documented) at patient's floor/unit and/or counseling patient: Exam Psych: Affect: normal affect Other: Abd: fundus firm below umbilicus, nontender Perineum: healing Ext: nontender
[2022-09-27 19:30] VITALS: BP 130/75; PULSE 67; RESP 16; TEMP 36.6; O2SAT 98
--- NOTE | 2022-09-27 21:50 | PC.NURSE ---
09/27/2022 at 1900 Patient viewed the discharge video Mother & Baby Care, The First Two Weeks . Patient was given the opportunity and encouraged to ask questions. Patient verbalized understanding of information shared and has been given the mother/baby guide for home reference.
[2022-09-28] MEDS: IBUPROFEN 600 MG TABLET PO (05:35)
[2022-09-28 08:00] VITALS: BP 128/78; PULSE 82; RESP 16; TEMP 37.1; O2SAT 99
--- NOTE | 2022-09-28 09:22 | PM.OBPNVD ---
OB - PN: Subj Subjective Date/time seen: 09/28/22 09:22 Patient comments: no complaints and pain well controlled baby status: doing well OB - PN: Obj Data Labs 09/27/22 04:56 OB - PN A/P Plan day: 2 Plan: routine care, discharge home and follow up 6 weeks Time Spent With Patient Time: Total time spent is greater than 50% in coordination of care (as documented) at patient's floor/unit and/or counseling patient: Exam : Bimanual exam- vagina & uterus: other (Uterus firm, nt @U)
[2022-09-28] MEDS: MULTIVIT/MIN/PREN/FOL AC/IRON TABLET 1 TAB PO (09:23)
[2022-09-28] MEDS: DOCUSATE SODIUM 100 MG CAPSULE PO (09:23)
[2022-09-28 13:14] LABS: Rapid Plasma Reagin Non-Reactive (NonReactive)
--- NOTE | 2022-09-28 13:41 | PC.NURSE ---
[id number] Introductions were made, then consulted with patient to assess needs related to . Mother is demonstrating independently latching infant to her right breast, then effectively without pain. Mother states there is some discomfort at first, then it subsides. If there is a painful latch she detaches using her pinky finger to break suction, then re-latches with an improved wide, open gape protecting her nipple from pain. Reminded parents to use good handwashing technique to prevent infection. Mother is feeding appropriately for growth of infant and understands stimulating infant to eat if needed. has had appropriate feedings in the last 24 hours meets the outcomes for weight, output and jaundice at this time. Mother states she is confident to continue effectively breastfeed her infant at home, when to call for assistance and denies any additional assistance or education at this time. Reinforced understanding of milk production, transition of milk, signs of adequate intake, transition of stool, prevention/relief of engorgement, responsive watching for feeding cues, the different methods of stimulating to breastfeed 2-3 hours after the start of the last feeding, community resources, medication information reviewed per [facility] and when to call a provider using the resource of the mom/baby guide and business card. Mother voiced understanding of the education shared.
[2022-09-29 09:20] VITALS: BP 116/82; PULSE 91; RESP 20; TEMP 36.8; O2SAT 100
== END 2022-09-28 14:05 | disposition home or self-care (01) | DRG 807 ==
LOC: ANHLDR 09-26 00:29 → ANHOB2 09-26 04:10
PROVIDERS: Admitting Provider Obstetrics & Gynecology Gynecology; PCP Family Medicine; Visit Provider Obstetrics & Gynecology Gynecology
DX: O76 Abnormality in fetal heart rate and rhythm complicating labor and delivery (principal); Z37.0 Single live birth; O99.824 Streptococcus B carrier state complicating childbirth; O77.0 Labor and delivery complicated by meconium in amniotic fluid; O62.3 Precipitate labor; O70.1 Second degree perineal laceration during delivery; Z3A.39 39 weeks gestation of pregnancy
CPT/HCPCS: 36415; 85014; 85018; 85025; 86592; 86850; 86900; 86901; 88307; A9270; J0290; J2405; J2590; J2795; J7120

== ENCOUNTER 2022-10-04 10:14 | Emergency (ER) | payer OTHER, SELFPAY ==
--- NOTE | ~2022-10-04 | XR_ITS ---
EXAMINATION: XR chest 2V 10/04/2022 11:07 INDICATION: Cough for one week PROCEDURE: 2 view chest COMPARISON: No prior studies for comparison. FINDINGS: The lungs are clear. The cardiomediastinal silhouette is within normal limits. There are no pleural effusions. There is no pneumothorax suspected. IMPRESSION: 1: NO ACUTE CARDIOPULMONARY DISEASE. Reviewed, dictated and finalized at location A.
[2022-10-04 10:32] VITALS: BP 141/86; PULSE 84; RESP 18; TEMP 36.2; O2SAT 99
--- NOTE | 2022-10-04 10:52 | ED.URI ---
HPI - URI/Sore Throat General Chief Complaint: Upper Respiratory Infection Stated Complaint: cough Time Seen by Provider: 10/04/22 10:52 Source: patient Mode of arrival: ambulatory Limitations: no limitations History of Present Illness HPI Narrative: 32-year-old female presents with complaint of intermittent cough for the past week. Reports that cough is usually dry but sometimes she is able to cough up some clear sputum. Denies chest pain shortness breath. Afebrile. No runny nose or congestion. denies headache. Reports she had a recent uncomplicated vaginal delivery. Is concerned that she may have developed COVID or pneumonia from her hospital stay. Just wants to make sure she does not have something that she is going to pass on to the baby. She has been using cough drops and Vicks vapor rub at as needed. She does not want to take any oaka-fua-faapdzs medications because she is . Patient is well-appearing. All systems reviewed and negative except as noted above. Related Data Home Medications Medication Instructions Recorded Confirmed prenat.vits,loren,dnb-aqib-kcebq 1 tablet PO DAILY 11/01/20 10/04/22 escitalopram oxalate 10 mg tablet 10 mg PO DAILY 08/07/22 10/04/22 (Lexapro) Allergies Allergy/AdvReac Type Severity Reaction Status Date / Time No Known Allergies Allergy Verified 09/25/22 23:10 Review of Systems Review of Systems: CONSTITUTIONAL: Denies fever, chills, or sweats. EYES: Denies visual changes, redness, or discharge. ENT: Denies rhinorrhea, congestion, sore throat, or otalgia. CARDIOVASCULAR: Denies chest pain, palpitations, or edema. RESPIRATORY: Reports cough. Denies dyspnea. GASTROINTESTINAL: Denies abdominal pain, nausea, vomiting, or diarrhea. GENITOURINARY: Denies dysuria or hematuria. SKIN: Denies rash or itching. MUSCULOSKELETAL: Denies back pain, joint pain, or myalgia. NEUROLOGIC: Denies headache, numbness, or weakness. PSYCHIATRIC: Denies anxiety or depression. All other systems reviewed are negative, except as documented in HPI. [facility] Past Medical History Medical History Arrhythmia Fibroadenoma Migraine (normal spontaneous vaginal delivery) Obesity and not yet delivered Surgical History Surgical History History of bladder surgery Family History Family History Mother Diabetes mellitus Carcinoma of colon Grandparent Family history of malignant neoplasm of breast Family history of malignant neoplasm of brain Hypertension Leukemia Alzheimer disease Cerebrovascular accident Family history of cardiovascular disease Father Carcinoma of colon, Onset Age: 50 Social History Social History Smoking status: Never smoker Second hand tobacco smoke exposure: No Alcohol intake: never Substance use: never Substance use type: does not use Lack of Transportation: No Lack of Food: Never True Current Housing: I Have Housing Concerned About Future Housing: No Difficulty Paying Gas/Electric Bills: No Difficulty Paying for Meds: No Currently Unemployed: No Education: Master's Degree or Higher Difficulty w/ Childcare or Family Care: No Living arrangements: with family Gender identity (if verbalized by the patient): Female Sexual Orientation (if Verbalized by the Patient): Straight or Heterosexual Spiritual care concerns: No Agree to blood products: Yes Comments At time of signature, agree with nursing past medical, surgical, social and family history. There is no relevant family history pertinent to the presenting complaint. Exam Narrative: GENERAL: This is a well-nourished, well-developed patient, in no apparent distress. HEAD: normocephalic, atraumatic. EYES: PERRL.
== END 2022-10-04 11:29 | disposition home or self-care (01) ==
PROVIDERS: Emergency Provider Nurse Practitioner Family; PCP Family Medicine
DX: R05.1 Acute cough (principal); Z20.822 Contact with and (suspected) exposure to COVID-19; E66.9 Obesity, unspecified; Z68.29 Body mass index [BMI] 29.0-29.9, adult
CPT/HCPCS: 71046; 87426; 99213; C9803; G0463

== ENCOUNTER 2023-11-18 08:26 | Emergency (ER) | payer BC, SELFPAY ==
[2023-11-18 08:41] VITALS: BP 116/80; PULSE 85; RESP 18; TEMP 36.6; O2SAT 98
--- NOTE | 2023-11-18 09:05 | ED.EYEPROB ---
HPI - Eye Problem General Chief complaint: Eye Problems Stated complaint: sore rt eye Time Seen by Provider: 11/18/23 08:49 Source: patient, RN notes reviewed and old records reviewed Mode of arrival: ambulatory Limitations: no limitations History of Present Illness HPI Narrative: 33-year-old female to [facility] for complaint of right eye swelling and tenderness for 18 hours. Patient endorses history of eye infection once previously and states that this feels very similar. Patient denies visual changes, drainage, fever, recent illness, cough, nasal congestion, sinus pain, allergies. Patient states that she normally wears contacts but states she stopped and is wearing glasses today. Patient able to tolerate fluids by mouth. Respirations even and nonlabored. Patient in no acute distress. Related Data Home Medications Medication Instructions Recorded Confirmed escitalopram oxalate 10 mg tablet 20 mg PO DAILY 08/07/22 10/04/22 (Lexapro) Allergies Allergy/AdvReac Type Severity Reaction Status Date / Time No Known Allergies Allergy Verified 11/18/23 08:51 Review of Systems Review of Systems: All systems reviewed & are unremarkable except as noted in HPI and below Constitutional: Constitutional: Reports as per HPI, Denies fatigue and Denies fever(s) Eyes: Eyes: Reports as per HPI, Denies blurry vision, Denies change in vision, Denies eye discharge, Reports irritation ( Right) and Denies photophobia ENT: Reports system reviewed and no additional complaints, except as documented Cardiovascular: Cardiovascular: Reports no additional cardiovascular complaints, Denies chest pain and Denies dyspnea Respiratory: Respiratory: Reports no additional respiratory complaints, Denies cough and Denies dyspnea Musculoskeletal: Musculoskeletal: Reports no additional musculoskeletal complaints Neurologic: Reports system reviewed and no additional complaints, except as documented Psychiatric: Psychiatric: Reports no additional psychiatric complaints [facility] Past Medical History Medical History Arrhythmia Fibroadenoma Migraine (normal spontaneous vaginal delivery) Obesity and not yet delivered Surgical History Surgical History History of bladder surgery Family History Family History Mother Diabetes mellitus Carcinoma of colon Grandparent Family history of malignant neoplasm of breast Family history of malignant neoplasm of brain Hypertension Leukemia Alzheimer disease Cerebrovascular accident Family history of cardiovascular disease Father Carcinoma of colon, Onset Age: 50 Social History Social History Smoking status: Never smoker Second hand tobacco smoke exposure: No Alcohol intake: never Substance use: never Substance use type: does not use Lack of Transportation: No Lack of Food: Never True Current Housing: I Have Housing Concerned About Future Housing: No Difficulty Paying Gas/Electric Bills: No Difficulty Paying for Meds: No Currently Unemployed: No Education: Master's Degree or Higher Difficulty w/ Childcare or Family Care: No Living arrangements: with family Gender identity (if verbalized by the patient): Female Sexual Orientation (if Verbalized by the Patient): Straight or Heterosexual Spiritual care concerns: No Agree to blood products: Yes Comments At the time of my signature, I reviewed and agree with the nursing past medical, surgical, social, and family history. There is no relevant family history pertinent to the patient complaint. Exam Const: General: cooperative, healthy appearing, comfortable, no acute distress, alert and well nourished Nutritional Appearance: well nourished Orientat
== END 2023-11-18 09:08 | disposition home or self-care (01) ==
PROVIDERS: Emergency Provider Nurse Practitioner Family; PCP Family Medicine
DX: H10.9 Unspecified conjunctivitis (principal); E66.9 Obesity, unspecified; Z68.27 Body mass index [BMI] 27.0-27.9, adult
CPT/HCPCS: 99213; G0463

== ENCOUNTER 2024-04-07 10:50 | Outpatient (CLI) | payer BC, SELFPAY ==
--- NOTE | ~2024-04-07 | US_ITS ---
EXAMINATION: US OB <= 14 weeks fetus DATE: 04/07/2024 11:15 INDICATION: . Confirmation of viability. TECHNIQUE: Real-time transabdominal pelvic ultrasound was performed. COMPARISON: None. FINDINGS: The uterus measures 10.5 x 10.2 x 10.0 cm. There is an intrauterine gestational sac. The crown rump length measures 6.9 cm, which correlates with an estimated gestational age of 13 weeks and 1 day (s) (+/-) 1 week(s) and 1 day(s). heart motion is identified measuring 148 beats per minute (bp m) by M-mode Doppler. The placenta is posterior. The ovaries are not visualized. There is no free flu id in the pelvis. IMPRESSION: 1. Single living intrauterine gestation with estimated date of delivery of 10/12/2024. Reviewed, dictated and finalized at location A. [employer] IMPRESSION: 1. Single living intrauterine gestation with estimated date of delivery of 09/24.
== END 2024-04-07 10:51 | disposition home or self-care (01) ==
PROVIDERS: PCP Family Medicine; Visit Provider Advanced Practice Midwife
DX: O36.80X0 Pregnancy with inconclusive fetal viability, not applicable or unspecified (principal); Z3A.00 Weeks of gestation of pregnancy not specified
CPT/HCPCS: 76801

== ENCOUNTER 2024-04-17 16:42 | Emergency (ER) | payer BC, SELFPAY ==
[2024-04-17 16:59] VITALS: BP 127/79; PULSE 62; RESP 16; TEMP 36.2; O2SAT 100
--- NOTE | 2024-04-17 17:08 | ED.WOUNDLAC ---
HPI - Wound/Laceration General Chief Complaint: Wound/Laceration Stated Complaint: LT Thumb Injury Time Seen by Provider: 04/17/24 17:08 Source: patient Mode of arrival: ambulatory Limitations: no limitations History of Present Illness HPI narrative: 33-year-old female presented for complaint of laceration to the left thumb sustained just prior to arrival. She states while using a knife to cut and in she sliced the finger. CMS intact. UTD on vaccines. 13 weeks gestation. Related Data Home Medications ?Medication ?Instructions ?Recorded ?Confirmed ?Last Taken ?Type escitalopram oxalate 10 mg tablet 20 mg PO DAILY 08/07/22 10/04/22 09/25/22 History (Lexapro) 10 mg Allergies Allergy/AdvReac Type Severity Reaction Status Date / Time No Known Allergies Allergy Verified 04/17/24 17:05 Review of Systems Review of Systems: CONSTITUTIONAL: Denies body aches, fever, chills, or sweats. EYES: Denies visual changes, redness, or discharge. ENT: Denies rhinorrhea, congestion CARDIOVASCULAR: Denies chest pain, palpitations, or edema. RESPIRATORY: Denies cough or dyspnea. GASTROINTESTINAL: Denies abdominal pain, nausea, vomiting, or diarrhea. SKIN: per HPI MUSCULOSKELETAL: Denies back pain, joint pain, or myalgia. NEUROLOGIC: Denies headache, numbness, tingling, or weakness. [facility] Past Medical History Medical History (normal spontaneous vaginal delivery) Arrhythmia Obesity and not yet delivered Fibroadenoma Migraine Surgical History Surgical History History of bladder surgery Family History Family History Mother Diabetes mellitus Carcinoma of colon Grandparent Family history of malignant neoplasm of breast Family history of malignant neoplasm of brain Hypertension Leukemia Alzheimer disease Cerebrovascular accident Family history of cardiovascular disease Father Carcinoma of colon, Onset Age: 50 Social History Social History Smoking status: Never smoker Second hand tobacco smoke exposure: No Alcohol intake: never Substance use: never Substance use type: does not use Lack of Transportation: No Lack of Food: Never True Current Housing: I Have Housing Concerned About Future Housing: No Difficulty Paying Gas/Electric Bills: No Difficulty Paying for Meds: No Currently Unemployed: No Education: Master's Degree or Higher Difficulty w/ Childcare or Family Care: No Living arrangements: with family Gender identity (if verbalized by the patient): Female Sexual Orientation (if Verbalized by the Patient): Straight or Heterosexual Spiritual care concerns: No Agree to blood products: Yes Comments At time of signature, I have reviewed and agree with nursing past medical, surgical, social and family history unless otherwise noted. Please see nursing chart for further information. There is no relevant family history pertinent to the presenting complaint Exam Narrative: GENERAL: Well-appearing EYES: conjunctivae clear, and EOMI. ENT: Mucous membranes moist. Oropharynx without edema, erythema or lesions. CHEST: Clear to auscultation. HEART: Regular rate and rhythm. SKIN: Warm, dry. Left thumb distal aspect with 1cm flap, no active bleeding. CMS intact. NEURO: Alert and oriented x3. Course Course Emergency Course: Patient is aware of diagnosis, understands and agrees to treatment plan. Anticipatory guidance given. Patient agrees to follow-up as directed and is aware of reasons to seek care at the emergency department. Portions of this record may have been created with voice recognition software Level of Care: Express Care Visit Vital Signs Vital signs: Reviewed Procedures Laceration left thumb: Date: 04/17/24 Size (cm): 1 Description: flap and clean Depth: simple, single layer Pre-repair: irrigated (cleansed with skintegrity) ====== Skin Level ====== Skin layer closed with: dermabond and steri strips ====== Subcutaneous Layer ====== ====== Muscle Layer ====== ====== Tendon Layer ====== MDM - Wound/Laceration MDM Narrative Medical decision making narrative: Discussed physical exam findings, tolerated wound closure with Steri-Strips and glue, aluminum splint applied. Advised supportive measures and signs/symptoms to go to the ER. Pt is appropriate for outpt treatment and f/u. Differential Diagnosis Differential diagnosis: Likely laceration, abrasion and avulsion of skin Discharge Plan Discharge Clinical Impression: Laceration of thumb Patient Disposition: Home, Self-Care Condition: Stable Instructions: Antibiotic Form, Finger Laceration (ED) Additional Instructions: The glue film will fall off in 5 to 10 days Steri-Strips will roll off on their own within 14 days Keep the splint in place to protect the area Do not soak your wound. Avoid frequent or prolonged contact with water, including heavy perspiration. This may loosen the skin glue before the wound is healed. Keep the area clean and dry - cleanse with warm water and mild soap and allow to fully dry. Watch for worsening symptoms including pain, redness, swelling, streaking, pus/drainage, fever. Go to the ER with any of these symptoms or concerns. Follow up with primary care provider in 1 week as needed. Patient Language: Greek Prescriptions: No Action escitalopram oxalate [Lexapro] 10 mg tablet 20 mg PO DAILY Follow-up/Referrals: Ora Hernandez MD [Primary Care Provider] - Time of Disposition: 17:24
== END 2024-04-17 17:26 | disposition home or self-care (01) ==
PROVIDERS: Emergency Provider Nurse Practitioner Family; PCP Family Medicine
DX: S61.012A Laceration without foreign body of left thumb without damage to nail, initial encounter (principal); W26.0XXA Contact with knife, initial encounter
CPT/HCPCS: 12001; 99213; G0463

== ENCOUNTER 2024-08-27 17:31 | Observation (INO) | payer BC, SELFPAY ==
--- OUTSIDE RECORDS SUMMARY | 2024-08-27 17:37 | XMS_ITS | Clinical Summary ---
Author Organization [facility] Address [address] [address] Care Team Providers Care Manager Coding Name Role Phone Ora Hernandez MD Primary Care Provider [phone] Allergies No known active allergies Medications escitalopram (LEXAPRO) 10 mg tablet 03/01/2023 Active Active Problems Problem Noted Date Diagnosed Date Breast mass 06/04/2021 Surgical History Surgery Date Site/Laterality Comments BREAST BIOPSY 06/11/2021 Right Social History Tobacco Use Types Packs/Day Years Used Date Smoking Tobacco: Never Assessed Comments Unknown Sex and Gender Information Value Date Recorded Sex Assigned at Not on file Legal Sex 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 Gender Identity Not on file Sexual Orientation Not on file Obstetrics History Last Filed Vital Signs Vital Sign Reading Time Taken Comments Blood Pressure 120/78 03/09/2023 3:58 PM BEHAVIORAL HEALTH CASE MANAGER Pulse 72 03/09/2023 3:58 PM BEHAVIORAL HEALTH CASE MANAGER Temperature 37.3 C (99.1 F) 03/09/2023 3:58 PM BEHAVIORAL HEALTH CASE MANAGER Respiratory Rate 18 03/09/2023 3:58 PM BEHAVIORAL HEALTH CASE MANAGER Oxygen Saturation 98% 03/09/2023 3:58 PM BEHAVIORAL HEALTH CASE MANAGER Inhaled Oxygen Concentration - - Weight 77.1 kg (170 lb) 03/09/2023 3:58 PM BEHAVIORAL HEALTH CASE MANAGER Height 162.6 cm (5' 4) 03/09/2023 3:58 PM BEHAVIORAL HEALTH CASE MANAGER Body Mass Index 29.18 03/09/2023 3:58 PM BEHAVIORAL HEALTH CASE MANAGER Plan of Treatment Health Maintenance Due Date Last Done Comments Cervical Cancer Screening 1991 Depression Screening 1991 Hepatitis C Screening 1991 DTaP/Tdap/Td Vaccine (1 - Tdap) 07/23/2002 Varicella Vaccines (1 of 2 - 13+ 2-dose series) 07/23/2004 Hepatitis B Screening 07/23/2009 Regular Well Visit/Exam 18-64 07/23/2009 Influenza Vaccine (Season Ended) 2024 03/29/20 19 HPV Vaccines Aged Out No longer eligi ble based on patient's age to complete this topic Pneumococcal vaccine <65 Aged Out No longer eligible based on patient's age to complete this topic Insurance [employer] OPEN ACCESS [employer] OPEN ACCESS [employer] OPEN ACCESS Care Teams Manager Coding Relationship Specialty Start Date End Date Ora Hernandez MD PCP - General 09/15/17
--- OUTSIDE RECORDS SUMMARY | 2024-08-27 17:37 | XMS_ITS | Referral Summary ---
Author Organization [facility] Address [address] [address] Care Team Providers Care Wildlife Refuge Specialist Name Role Phone Ora Hernandez MD Primary Care Provider [phone] Allergies No known active allergies Medications escitalopram (LEXAPRO) 10 mg tablet 03/01/2023 Active Active Problems Problem Noted Date Diagnosed Date Breast mass 06/04/2021 Social History Tobacco Use Types Packs/Day Years Used Date Smoking Tobacco: Never Assessed Comments Unknown Sex and Gender Information Value Date Recorded Sex Assigned at Not on file Legal Sex Female 11:24 PM CONCRETE PRODUCTS MACHINE OPERATOR Gender Identity Not on file Sexual Orientation Not on file Last Filed Vital Signs Vital Sign Reading Time Taken Comments Blood Pressure 120/78 03/09/2023 3:58 PM CONCRETE [employer]ODUCTS MACHINE OPERATOR Pulse 72 03/09/2023 3:58 PM CONCRETE PRODUCTS MACHINE OPERATOR Temperature 37.3 C (99.1 F) 03/09/2023 3:58 PM CONCRETE PRODUCTS MACHINE OPERATOR Respiratory Rate 18 03/09/2023 3:58 PM CONCRETE PRODUCTS MACHINE OPERATOR Oxygen Saturation 98% 03/09/2023 3:58 PM CONCRETE PRODUCTS MACHINE OPERATOR Inhaled Oxygen Concentration - - Weight 77.1 kg (170 lb) 03/09/2023 3:58 PM CONCRETE PRODUCTS MACHINE OPERATOR Height 162.6 cm (5' 4) 03/09/2023 3:58 PM CONCRETE PRODUCTS MACHINE OPERATOR Body Mass Index 29.18 03/09/2023 3:58 PM CONCRETE PRODUCTS MACHINE OPERATOR Plan of Treatment Not on file Insurance [employer] OPEN ACCESS [employer] OPEN ACCESS [employer] OPEN ACCESS Care Teams Wildlife Refuge Specialist Relationship Specialty Start Date End Date Ora Hernandez MD [facility] - General 09/15/17
--- OUTSIDE RECORDS SUMMARY | 2024-08-27 17:37 | XMS_ITS | Data Portability ---
Author Organization [facility] Address [address] [place] [address] [place] [address] Care Team Providers Care Supervisor Anodizing Name Role Phone RUBEN AMAYA Primary Care Provider Assessment Encounter Date Assessment Date Assessment LastModified by Organization Details LastModified Time 07/14/2024 07/14/2024 Patient is ___weeks . Discussed plan. [email or web address] Not available 07/14/2024 10:26:00 07/28/2024 07/28/2024 Patient is __28_weeks . Discussed plan. [email or web address] Not available 07/28/2024 09:38:34 08/11/2024 08/11/2024 Patient is ___weeks . Discussed plan. [email or web address] Not available 08/11/2024 09:43:21 08/25/2024 08/25/2024 Patient is _32__weeks . Discussed plan. [email or web address] Not available 08/25/2024 13:35:15 Plan of Treatment Reminders Order Date Submit Date Provider Last Modified By Organization Details Last Modified Time Details Appointments U/S OB GROWTH 2024 08:30A M ULTRASOUND Not available Not available Not available OB ROUTINE 2024 09:00A M Fern Dickey CNM Not available Not available Not available Lab None recorde d. Referral None recorde d. Procedures None recorde d. Surgeries None recorde d. Imaging US, obstetr ic, 2nd or 3rd trimest er 2024 025 [email or web address] [place], [address], [place], [address], 06/03/2024 11:03:17 Medication Orders None recorde d. Patient TargetsNo targets recorded. Patient InstructionsNo instructions recorded. Reason for Referral None Reported. Results Created Date Observation Date Name Description Value Unit Range Abnormal Flag Note LastModifiedBy Organization Detail LastModifiedTime 07/29/1907/28/2024 HEMAT OCRIT (HCT) HCT 35.8 % (based on docume nted legal sex) 34.0-4 5.0 Not Available [facility] (Lab) [address] [place], [address], 07/29/2024 14:35:07 07/29/19 25 07/28/2024 HEMOG LOBIN (HGB) HGB 11.8 g/dL (based on docume nted legal sex) 11.6-1 5.4 Not Available [facility] (Lab) [address] [place], [address], 07/29/2024 14:35:08 07/29/19 25 07/28/2024 GTT - GESTA HAIM L ROSA [place], ACOG OB glucose, 1 hour screen 114 mg/dL 70-135 Not Available [facility] (Lab) [address] [place], [address], 07/29/2024 14:35:08 07/29/19 25 07/28/2024 HIV 1/2 ANTIG EN/AN TIBOD Y, REFLE X CONFI RMATI ON HIV antigen/anti body Nonrea ctive nonrea ctive HIV-1 antig en and HIV-1 /HIV- 2 antib odies were not detec adolfo. No labor atory evide nce of HIV infec tion. Not Available [facility] (Lab) [address] [place], [address], 07/29/2024 14:35:08 07/29/19 25 07/28/2024 RPR SCREE N, REFLE X TITER /CONF IRMAT ION RPR qualitative Nonrea ctive nonrea ctive Not Available [facility] (Lab) [address] [facility], [place], [address], 07/29/2024 14:35:09 06/02/19 25 06/02/2024 US, obste tric, 2nd or 3rd trime ster No observ ation record ed. [facility] [address], [place], [address], 06/02/2024 18:33:33 06/02/19 25 06/02/2024 US, obste tric, 2nd or 3rd trime ster No observ ation record ed. Jessica [address], [place], [address], 06/03/2024 14:10:32 Result Notes None recorded. Problems Name Problem SNOMED Code Status Onset Date Resolution Date Notes Provider Name and Address Organization Details Recorded Time 60727547 Active [address] [facility] 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 5 14:09:59 Placenta circumvallata 4656046 Active 32wk growth [facility] 14:09:59 Problem Notes None recorded. Procedures Surgical History Date Name Laterality Status Provider Name and Address Organization Details Recorded Time 4 Date of Last Pap Smear completed Irmajayro Michaud [facility] 05/28/2024 12:52:51 0 Breast Biopsy completed Irmajayro Michaud [facility] 05/28/2024 12:38:52 3 extraction of wisdom tooth completed Irmajayro Michaud [facility] 07/14/2024 10:31:07 9 procedure on urinary bladder completed Irmajayro Michaud [facility] 05/28/2024 12:55:50 Imaging Results Imaging Date Name Status LastModified by Organiz ation Details LastModified Time 06/02/2024 US, obstetric, 2nd or 3rd trimester completed [email or web address] [place] [address], [place], [address], 06/02/2024 18:33:33 06/02/2024 US, obstetric, 2nd or 3rd trimester completed Jessica [address], [place], [address], 06/03/2024 14:10:32 Procedure Notes None recorded. Medical Equipment None Reported. Allergies No known drug allergies Medications Name Sig Start Date Stop Date Status Note LastModified by Organization Details LastModified Time ofloxacin 0.3 % eye drops 06/02 completed Not Available Not Available Not Available amoxicillin 500 mg tablet TAKE 1 TABLET BY MOUTH EVERY 12 HOURS FOR 10 DAYS 06/02 completed Not Available Not Available Not Available Vitamin C 1,000 mg tablet Take by oral route. 07/28 completed Not Available Not Available Not Available escitalopram 20 mg tablet TAKE 1 TABLET BY MOUTH EVERY DAY active Not Available Not Available No t Available Vitamin D active Not Available Not Mallory ilable Not Available active Not Available Not Avai lable Not Available Vitals Date Recorded Body weight Body mass index (BMI) Body height Systolic blood pressure Diastolic blood pressure Provider Name and Address Organization Details Last Updated DateTime 06/02/2024 61411.66 g 30 kg/m2 162.56 cm 118 mm[Hg] 72 mm[Hg] Vicky Eason [facility] 5 12:43:54 Date Recorded Body height Body mass index (BMI) Body weight Systolic blood pressure Diastolic blood pressure Provider Name and Address Organization Details Last Updated DateTime 07/14/2024 162.56 cm 31.1 kg/m2 16935.22 g 125 mm[Hg] 70 mm[Hg] Irma Michaud [facility] 5 10:27:01 Date Recorded Body weight Body mass index (BMI) Body height Systolic blood pressure Diastolic blood pressure Provider Name and Address Organization Details Last Updated DateTime 07/28/2024 95180.18 082 g 31.9 kg/m2 162.56 cm 127 mm[Hg] 85 mm[Hg] Irma Michaud [facility] 5 09:19:04 Date Recorded Body height Body mass index (BMI) Body weight Systolic blood pressure Diastolic blood pressure Provider Name and Address Organization Details Last Updated DateTime 08/11/2024 162.56 cm 31.9 kg/m2 03853.74 g 129 mm[Hg] 78 mm[Hg] Niurka Celestin [facility] 5 09:44:16 Date Recorded Body height Body mass index (BMI) Body weight Systolic blood pressure Diastolic blood pressure Provider Name and Address Organization Details Last Updated DateTime 08/25/2024 162.56 cm 31.8 kg/m2 76209.59 g 136 mm[Hg] 74 mm[Hg] Irma Michaud [facility] 12:19:49 Social History Question Answer Notes LastModified by Organizat ion Details LastModified Time Tobacco Smoking Status Never Smoker Irma Michaud [facility] 05/28/2024 12:46:53 Do You Have An Advance Directive? No [email or web address] Information n ot available 06/02/2024 What Is Your Level Of Alcohol Consumption? None [email or web address] Information not available 05/28/2024 If You Are , What Was Your Level Of Alcohol Consumption Prior To ? Occasional [email or web address] Information not available 05/28/2024 Are You Blind Or Do You Have Difficulty Seeing? No [email or web address] Information n ot available 05/28/2024 What Is Your Level Of Caffeine Consumption? Occasional [email or web address] Information not available 06/02/2024 How Much Tobacco Do You Chew? None [email or web address] Information not available 06/02/2024 In The 14 Days Before Symptom Onset, Have You Had Close Contact With A Laboratory-confirm ed COVID-19 While That Case Was Ill? No [email or web address] Information n ot available 05/28/2024 In The 14 Days Before Symptom Onset, Have You Had Close Contact With A Person Who Is Under Investigation For COVID-19 While That Person Was Ill? No [email or web address] Information not available 05/28/2024 Have You Been To An Area Known To Be High Risk For COVID-19? No [email or web address] Information not available 05/28/2024 Are You Deaf Or Do You Have Serious Difficulty Hearing? No [email or web address] Information not available 05/28/2024 What Type Of Diet Are You Following? REGULAR [email or web address] Information n ot available 05/28/2024 What Is The Highest Grade Or Level Of School You Have Completed Or The Highest Degree You Have Received? [id number] Information not available 06/02/2024 What Is Your Occupation? Homemaker [email or web address] Information not available 06/02/2024 Are There Any Guns Present In Your Home? Yes [email or web address] Information not available 06/02/2024 Do You Use Protection During Sex? Usually Information not available 06/02/2024 Do You Use Your Seat Belt Or Car Seat Routinely? Yes [email or web address] Information not available 05/28/2024 Do You Have Smoke And Carbon Monoxide Detectors In Your Home? Yes [email or web address] Information not available 05/28/2024 How Much Tobacco Do You Smoke? No [email or web address] Information not available 06/02/2024 Do You Feel Stressed (tense, Restless, Nervous, Or Anxious, Or Unable To Sleep At Night)? [id number] [email or web address] Information not available 06/02/2024 Do You Use Any Illicit Or Recreational Drugs? No [email or web address] Information not available 05/28/2024 Do You Use Sunscreen Routinely? Yes [email or web address] Information not available 05/28/2024 Has Tobacco Cessation Counseling Been Provided? No [email or web address] Information not available 05/28/2024 Have You Used IV Drugs? No [email or web address] Information not available 06/02/2024 Do You Or Have You Ever Used Any Other Forms Of Tobacco Or Nicotine? No Information not available 05/28/2024 Sex: Unknown Functional Status Question Answer Note LastModified by Organizat ion Details LastModified Time Do you have difficulty walking or climbing stairs? No [email or web address] Information not available 05/28/2024 Are you able to walk? YESWOREST Information not available 05/28/2024 Are you able to care for yourself? Yes [email or web address] Information not available 05/28/2024 Do you have difficulty dressing or bathing? No [email or web address] Information not available 05/28/2024 What is your exercise level? Heavy [email or web address] Information not available 06/02/2024 Mental Status None recorded. Family History Relationship Description Onset Age of this Age Resolved Age Notes LastModified by Organization Details LastModified Time Maternal Grandmother Diabetes mellitus Not available 2024 12:10:03 Maternal Grandmother Hypertensive disorder [email or web address] Not available 2024 12:10:03 Maternal Grandmother Depressive disorder [email or web address] Not available 2024 12:10:03 Paternal Grandmother Coronary arterioscler osis [email or web address] Not available 2024 12:10:03 Paternal Grandmother Cerebrovascu lar accident Not available 10/2024 12:10:03 Paternal Grandmother Malignant tumor of breast Not available 2024 12:10:03 Father Coronary arterioscler osis [email or web address] Not available 2024 12:10:03 Father Malignant tumor of colon [email or web address] Not available 05/28 12:33:18 Mother Diabetes mellitus [email or web address] Not available 2024 12:10:03 Mother Depressive disorder Not available 2024 12:10:03 Mother Malignant tumor of colon [email or web address] Not available 2024 12:10:03 Maternal Grandfather Cerebrovascu lar accident [email or web address] Not available 10/2024 12:10:03 Maternal Grandfather Malignant neoplastic disease [email or web address] Not available 2024 12:10:03 Maternal Grandfather Hypertensive disorder [email or web address] Not available 2024 12:10:03 Paternal Grandfather Malignant tumor of colon [email or web address] Not available 2024 12:10:03 Medical History Condition Response Allergies (Food, seasonal, environmental ) N Other N Breast Cancer N Drug/Latex Allergies/Reactions N Blood Transfusion N Dermatologic Disorders N Lung Disease N Defects or Inherited Disease N Breast Problem Y Gestational Diabetes N Hematologic disorders N Anesthesia Complications N History of STI N Deep Vein Thrombosis N Polycystic ovary syndrome N Anxiety Disorder Y Autoimmune disease N Arthritis N Infertility N Polyps N Acid Reflux (GERD) N History of abnormal pap N Cancer N Stroke N Varicosities N Neurologic/Epilepsy N Endometriosis N High Cholesterol N Headaches N Fibromyalgia N Kidney Disease N Heart Problems N Kidney or Bladder Problems Y Thyroid Problems N GI Problems N Eating Disorder N Anemia N Art (IVF or FET) N Psychiatric Illness N Ovarian Cancer N Diabetes N Pulmonary (TB, Asthma) N Hepatitis/Liver Disease N No Past Medical History N Eczema N Urinary Tract Infection N Abuse/Domestic Violence N Asthma N Trauma/Violence N Depression/ depression Y Heart Disease N Pre-Eclampsia N Hypertension N Osteoporosis N Thrombophilias N Gynecological History Statement/Question Response Abnormal Pap N Flow Moderate Date of Last Mammogram Date of LMP 01/11/2024 N On BCP's at Conception? N STIs/STDs N Was last menstrual period normal Y HPV Vaccine N Duration of Flow (days) 4 Current Control Method Age at First Child 30 Date of Last Colonoscopy Frequency of Cycle (Q days) 27 Sexually Active? Y Date of DEXA bone scan Age of first menstrual cycle 16 Date of Last Pap Smear 05/26/2023 Sexual Problems? N LMP Definite Desired Control Method Condoms N Obstetrics History GPAL:G 3 P 2 0 0 2 Type Value Full Term 2 Living 2 Total 3 Past Encounters Encounter ID Performer Location Encounter Start Date Encounter Closed Date Diagnosis/Indication Diagnosis SNOMED-CT Code Diagnosis ICD10 Code Diagnosis Note [id number] Jj Cheng MD [place] [address],[facility] [place] [address] 06/02/2024 11:15:46 06/02/2024 12:43:10 screening for malformation 758869740 Z36.3 Z3A.20 [id number] PATTIE TAI MD [place] [address],[facility] [place] [address] 06/02/2024 11:20:07 06/02/2024 13:54:27 Anxiety in 2995656125 9109 F41.9 - stable on lexapro 20mg Gestation period, 20 weeks 79026385 Z3A.20 [id number] Fern Dickey CNM [place] [address],[place] [address] 07/14/2024 10:05:33 07/14/2024 11:01:34 [id number] Fern Dickey [facility] [address],[place] [address] 07/28/2024 09:04:05 07/28/2024 09:40:43 Gestation period, 28 weeks 11936155 Z3A.28 [id number] Jj Cheng MD [place] [address],[place] [address] 08/11/2024 09:35:03 08/11/2024 10:07:22 care status 060489056 Z34.83 [id number] Fern Dickey [facility] [address],[place] [address] 08/25/2024 12:03:41 08/25/2024 13:37:52 Gestation period, 32 weeks 2079446 Z3A.32 Health Concerns Section Related Observation LastModified by Organization Detai ls LastModified Time None Recorded Concern Status LastModified by Organization Details LastModified Time None Recorded Advance Directives Directive N: Payers Encounter Date Sequence Insurance Name Policy Number Policy Hu Covered Member ID Hu Member ID Guarantor Name 06/02/2024 1 [employer] [id number] Robert Olmstead [id number] Tessy Olmstead 07/14/2024 1 [place] [id number] Robert Olmstead [id number] 17 Tessy Assflynn 07/28/2024 1 [place] [id number] Robert Hightowerel [id number] 17 Tessy Assel 08/11/2024 1 [place] [id number] Robert Hightowerel [id number] 17 Tessy Assel 08/25/2024 1 [place] [id number] Robert Olmstead [id number] 17 Tessy Olmstead OBGyn Episode Ob Episode Information Episode Created Date Number of Fetuses Patient Bloodtype Patient rh Status Prepregnancy Weight lbs Domestic Partner Domestic Partner Phone Father Name Therapist Asst Status 06/02/19 25 1 B Positive 168 OPEN Fetus Data First Name Last Name Admitted to NICU Weight (g) Sex Living Outcome Pediatric Complications Fetus ID Race Codes Race Delivery Type [id number] Problems Problem Notes Problem Name Start Date End Date Resolution Snomed Code Not e Placenta circumvallata [id number] 32wk growth us Stanislav Calculation Initial Stanislav Date Initial Exam Date Initial Exam Provider Initial Ultrasound Date Last Menstrual Period Date Ultra Sound Weeks Gestation 10/17/2024 06/02/2024 04/03/2024 01/11/2024 11 Eighteen To Twenty Week Stanislav Update Ultra Sound Date Fundal Height At Umbil Quickening Date Ultra Sound Latest Weeks Gestation Final Stanislav Confirmed By Final Stanislav Confirmed Date Final Stanislav Date Ultra Sound Latest Days Gestation 0 [email or web address] 06/02/2024 10/18/19 25 0 Pre-janae Flowsheet Flowsheet Date 06/02/2024 Brooks Score Blood Edema Fundus Height Fundus Units Glucose Ketones Leukocytes Nitrite Labor Signs Protein Cervic Dilation Cervic Effacement Cervic Station Type Weight in lbs Pre/Post Dialysis Refused BP Diastolic BP Location Tested BP Systolic BP Type Fetus Heart Rate Present Fetus Movement Comments Flowsheet Date 06/02/2024 Brooks Score Blood Edema Fundus Height Fundus Units Glucose Ketones Leukocytes Nitrite Labor Signs Protein Cervic Dilation Cervic Effacement Cervic Station neg none Type Weight in lbs Pre/Post Dialysis Refused Weight 175.467356117748 BP Diastolic BP Location Tested BP Systolic BP Type 72 L arm 118 sitting Fetus Heart Rate Present A Present Fetus Movement A Yes Comments [facility] . Was previously seeing Ruben Wilkes. Hx of 2 uncomplicated SVDs. 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 No complications thus far in . Anatomy US complete and normal today. EFW 63%. Circumvallate placenta, repeat US at 32 weeks to monitor growth. RTC 4 weeks. Flowsheet Date 07/14/2024 Brooks Score Blood Edema Fundus Height Fundus Units Glucose Ketones Leukocytes Nitrite Labor Signs Protein Cervic Dilation Cervic Effacement Cervic Station 25 cm Type Weight in lbs Pre/Post Dialysis Refused Weight 181.973326432428 BP Diastolic BP Location Tested BP Systolic BP Type 70 125 Fetus Heart Rate Present A 149 Fetus Movement A Yes Comments Patient is having BH contrac tions and nausea. +FM, planning epidural doing well, +FM gct at next visit, precautions and education Flowsheet Date 07/28/2024 Brooks Score Blood Edema Fundus Height Fundus Units Glucose Ketones Leukocytes Nitrite Labor Signs Protein Cervic Dilation Cervic Effacement Cervic Station neg none Type Weight in lbs Pre/Post Dialysis Refused 186.268490922450 BP Diastolic BP Location Tested BP Systolic BP Type 85 127 Fetus Heart Rate Present Fetus Movement A Yes Comments Patient states that is havin g BH contractions. reviewed precautions education, rx for tdap, US FHR 147bpm, f/u 2 weeks Flowsheet Date 08/11/2024 Brooks Score Blood Edema Fundus Height Fundus Units Glucose Ketones Leukocytes Nitrite Labor Signs Protein Cervic Dilation Cervic Effacement Cervic Station 30 cm Type Weight in lbs Pre/Post Dialysis Refused Weight 185.560359633396 BP Diastolic BP Location Tested BP Systolic BP Type 78 L arm 129 sitting Fetus Heart Rate Present A 139 Present Fetus Movement A Yes Comments no complaints, no problems, routine care, no contractions, no vaginal bleeding, no loss of fluid, no cramping Flowsheet Date 08/25/2024 Brooks Score Blood Edema Fundus Height Fundus Units Glucose Ketones Leukocytes Nitrite Labor Signs Protein Cervic Dilation Cervic Effacement Cervic Station neg none Type Weight in lbs Pre/Post Dialysis Refused Weight 185.596290952336 BP Diastolic BP Location Tested BP Systolic BP Type 74 136 Fetus Heart Rate Present A 138 Present Fetus Movement A Yes Comments Patient states that is havin g BH contractions. reviewed precautions education, time to call for preadmit, f/u 2 weeks Menstrual History Last Menstrual Date Menses Monthly On Bcp Conception Prior Menses Frequency Hcg Plus Date Menarche Onset Age 0901/11/2024 Delivery Information Delivery Date Delivery Type Labor Anesthesia Weeks Gestation Incision Type Labor Labor Length Hrs Delivered By Post Complications Tubal Sterilization Discharge Date Comments Discharge Information Feeding Method Contraceptive Method Maternal HG B and HCT Levels Ob Episode Information Episode Created Date Number of Fetuses Patient Bloodtype Patient rh Status Prepregnancy Weight lbs Domestic Partner Domestic Partner Phone Father Name Therapist Asst Status 05/28/19 25 1 CLOSED Fetus Data First Name Last Name Admitted to NICU Weight (g) Sex Living Outcome Pediatric Complications Fetus ID Race Codes Race Delivery Type 3430.06 [id number] F Full Term [id number] Vaginal Delivery Stanislav Calculation Initial Stanislav Date Initial Exam Date Initial Exam Provider Initial Ultrasound Date Last Menstrual Period Date Ultra Sound Weeks Gestation 0 Eighteen To Twenty Week Stanislav Update Ultra Sound Date Fundal Height At Umbil Quickening Date Ultra Sound Latest Weeks Gestation Final Stanislav Confirmed By Final Stanislav Confirmed Date Final Stanislav Date Ultra Sound Latest Days Gestation 0 0 Menstrual History Last Menstrual Date Menses Monthly On Bcp Conception Prior Menses Frequency Hcg Plus Date Menarche Onset Age Delivery Information Delivery Date Delivery Type Labor Anesthesia Weeks Gestation Incision Type Labor Labor Length Hrs Delivered By Post Complications Tubal Sterilization Discharge Date Comments 3 37 post depressio n Discharge Information Feeding Method Contraceptive Method Maternal HG B and HCT Levels Ob Episode Information Episode Created Date Number of Fetuses Patient Bloodtype Patient rh Status Prepregnancy Weight lbs Domestic Partner Domestic Partner Phone Father Name Therapist Asst Status 05/28/19 25 1 CLOSED Fetus Data First Name Last Name Admitted to NICU Weight (g) Sex Living Outcome Pediatric Complications Fetus ID Race Codes Race Delivery Type 3259.96 [id number] F Full Term [id number] Vaginal Delivery Stanislav Calculation Initial Stanislav Date Initial Exam Date Initial Exam Provider Initial Ultrasound Date Last Menstrual Period Date Ultra Sound Weeks Gestation 0 Eighteen To Twenty Week Stanislav Update Ultra Sound Date Fundal Height At Umbil Quickening Date Ultra Sound Latest Weeks Gestation Final Stanislav Confirmed By Final Stanislav Confirmed Date Final Stanislav Date Ultra Sound Latest Days Gestation 0 0 Menstrual History Last Menstrual Date Menses Monthly On Bcp Conception Prior Menses Frequency Hcg Plus Date Menarche Onset Age Delivery Information Delivery Date Delivery Type Labor Anesthesia Weeks Gestation Incision Type Labor Labor Length Hrs Delivered By Post Complications Tubal Sterilization Discharge Date Comments 1 40.5 Discharge Information Feeding Method Contraceptive Method Maternal HG B and HCT Levels
[2024-08-27 18:15] VITALS: BMI 32.0
[2024-08-27 18:49] VITALS: BP 115/64; PULSE 72
[2024-08-27 19:01] VITALS: BP 119/66; PULSE 63
[2024-08-27 19:02] LABS: Add Urine Microscopic? NO; Appearance Urine Clear (Clear); Bilirubin Urine Negative (Negative); Blood Urine Negative (Negative); Color Urine Yellow (Yellow); Glucose Urine UA Negative (Negative); Ketones Urine Negative (Negative); Leukocyte Esterase Ur Negative LEU/UL (Negative); Nitrate Urine Negative (Negative); Protein Urine Negative (Negative); Specific Grav Ur 1.003 (1.001-1.035); Urobilinogen Urine 0.2 mg/dL (<2.0)
[2024-08-27 19:16] VITALS: BP 118/63; PULSE 69
[2024-08-27 19:31] VITALS: BP 110/61; PULSE 65
[2024-08-27 19:46] VITALS: BP 113/61; PULSE 71
--- NOTE | 2024-08-27 20:05 | OBADM ---
This patient, Tessy Olmstead, admitted to the OB room OB Post 115 for observation. Patient/family oriented to hospital policies and general routines including ID bracelet, bed and alarms, visiting hours, pain management, procedures, bathroom and other care routines, personal items, smoking policy, room service/diet, and visiting hours. Patient/Family are encouraged to report perceived risks to care and to ask questions if they do not understand what they are told or what they should do.
--- NOTE | 2024-08-27 20:38 | PC.NURSE ---
Patient arrived to OB unit with complaints of GI bug symptoms. Patient states her son had the GI bug this week and she has not been able to stop having N/V/D. Patient states she had her last episode of diarrhea at 1600 today. Patient states when she was having the episodes of N/V/D, she felt like she started dione. Patient states she has had severino martines this , but no contractions like this. Patient denies any vaginal bleeding or leaking of fluid. Patient states she is having good movement. Patient states she has been able to keep food and water down PO and that it does not immediately come back up. 1949- RN notified MD of patient arrival and patient complaints. RN notified MD of FHT tracing with moderate variability and accelerations. RN also notified MD of contraction pattern when patient first arrived. RN notified MD that the contractions have spaced out significantly now, but that there is still some irritability present. RN notified MD that patient is not feeling them like she was earlier anymore. MD gave orders to check patient's cervix. RN notified MD of SVE. MD gave d/c orders. 2014- RN at bedside discussing d/c instructions with patient. Patient has no questions and agrees with plan of care.
--- NOTE | 2024-09-22 08:14 | P.PNOB_ITS ---
OB - Triage/Final Diagnosis Visit Information Comments/Additional reasons for admission: I have assessed the risk for this patient, Tessy Olmstead, and determined that she would benefit from observation care. Evaluation Laboratory results: Laboratory Tests 08/27/24 18:32 Urine Color Yellow Urine Appearance Clear Urine pH 7.0 Ur Specific [place] 1.003 Urine Protein Negative Urine Glucose (UA) Negative Urine Ketones Negative Ur Blood (Man) Negative Urine Nitrate Negative Urine Bilirubin Negative Urine Urobilinogen 0.2 Leukocyte Esterase Rfl Negative Final Diagnosis (1) False labor: Code(s): O47.9 - False labor, unspecified Status: Acute
== END 2024-08-27 20:20 | disposition home or self-care (01) ==
PROVIDERS: Admitting Provider Obstetrics & Gynecology; PCP Family Medicine; Visit Provider Obstetrics & Gynecology
DX: O47.03 False labor before 37 completed weeks of gestation, third trimester (principal); Z3A.32 32 weeks gestation of pregnancy
CPT/HCPCS: 81003; G0378; G0379

== ENCOUNTER 2024-10-11 01:24 | Inpatient (IN) | payer BC, SELFPAY ==
[2024-10-11] VITALS (94 sets, daily range): BP systolic 105–145; BP diastolic 51–100; PULSE 70–126; RESP 16–20; TEMP 36.3–36.8; O2SAT 83–100; BMI 32.1
--- OUTSIDE RECORDS SUMMARY | 2024-10-11 02:20 | XMS_ITS | Referral Summary ---
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 Gender Identity Not on file Sexual Orientation Not on file Last Filed Vital Signs Vital Sign Reading Time Taken Comments Blood Pressure 120/78 03/09/2023 3:58 PM SMALL PRODUCTS ASSEMBLER Pulse 72 03/09/2023 3:58 PM SMALL PRODUCTS ASSEMBLER Temperature 37.3 C (99.1 F) 03/09/2023 3:58 PM SMALL PRODUCTS ASSEMBLER Respiratory Rate 18 03/09/2023 3:58 PM SMALL PRODUCTS ASSEMBLER Oxygen Saturation 98% 03/09/2023 3:58 PM SMALL PRODUCTS ASSEMBLER Inhaled Oxygen Concentration - - Weight 77.1 kg (170 lb) 03/09/2023 3:58 PM SMALL PRODUCTS ASSEMBLER Height 162.6 cm (5' 4) 03/09/2023 3:58 PM SMALL PRODUCTS ASSEMBLER Body Mass Index 29.18 03/09/2023 3:58 PM SMALL PRODUCTS ASSEMBLER Plan of Treatment Not on file Insurance [employer] OPEN ACCESS CIGNA OPEN ACCESS CIG[employer] OPEN ACCESS Care Teams Director Property Relationship Specialty Start Date End Date Ora Hernandez MD [facility] - General 09/15/17
--- OUTSIDE RECORDS SUMMARY | 2024-10-11 02:20 | XMS_ITS | Data Portability ---
Author Organization [facility] [place] Address [address] [place] [address] Care Team Providers Care Associate Professor Of Biostatistics Name Role Phone RUBEN AMAYA Primary Care Provider Assessment Encounter Date Assessment Date Assessment LastModified by Organization Details LastModified Time 09/08/2024 09/08/2024 Patient is 34___weeks . Discussed plan. [email or web address] Not available 09/08/2024 11:14:03 09/22/2024 09/22/2024 Patient is ___weeks . Discussed plan. Not available 09/22/2024 09:36:51 09/25/2024 09/25/2024 Patient is ___weeks . Discussed plan. Not available 09/25/2024 11:26:17 10/06/2024 10/06/2024 Patient is __38_weeks . Discussed plan. [email or web address] Not available 10/06/2024 12:09:45 Plan of Treatment Reminders Order Date Submit Date Provider Last Modified By Organization Details Last Modified Time Details Appointments OB ROUTINE 2024 11:15A M Fern Dickey CNM Not available Not available Not available OB ROUTINE 2024 04:15P M Fern Dickey CNM Not available Not available Not available NST 2024 01:00P M NST SCHEDULE Not available Not available Not available xANY 2024 01:30P M Fern Dickey CNM Not available Not available Not available Lab None recorded . Referral None recorded . Procedures None recorded . Surgeries None recorded . Imaging US, obstetri c, follow-u p 05/16/ 2025 05/16/2 025 KAT [place], [address], [address], [place], [address], 09/09/2024 22:14:10 Medication Orders None recorded . Patient TargetsNo targets recorded. Patient InstructionsNo instructions recorded. Reason for Referral None Reported. Results Created Date Observation Date Name Description Value Unit Range Abnormal Flag Note LastModifiedBy Organization Detail LastModifiedTime 09/23/1909/22/2024 CULTU RE: GROUP B STREP SCREE N, REFLE X SUSCE PTIBI LITY result report SEE RESULT S BELOW Test: Cultu re: Group B Strep , Refle x Susce ptibi lity ([facility]/ [facility] ) Speci men Sourc e: Vagin a/Rec eda Speci men Type: Vagin al/Re ctal Speci men Date: 2024 1419 Resul t Date: 1449 Resul t Statu s: Final resul t Abnor mal: No Resul ting Lab: [facility] [address] [facility] [address] Tel: CULTU RE ----- ----- ----- --- No Group B strep isola adolfo at 2 days (carlos ctive broth enhan cemen t) Not Available [facility] (Lab) [address] [facility], [place], [address], 09/25/2024 15:53:24 08/28/1908/27/2024 non-s tress test No observ ation record ed. [address], [place], [address], 08/29/2024 09:16:34 09/09/1909/08/2024 US, obste tric, follo w-up No observ ation record ed. [email or web address] [address], [place], [address], 09/21/2024 12:08:52 09/09/1909/09/2024 US, obste tric, follo w-up No observ ation record ed. [facility] [address], [place], [address], 09/09/2024 10:35:40 Result Notes None recorded. Problems Name Problem SNOMED Code Status Onset Date Resolution Date Notes Provider Name and Address Organization Details Recorded Time 94511283 Active 2024 Vicky Eason [facility], [facility] 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 5 14:09:59 Placenta circumvallata 2528349 Active 32wk growth Aide [facility], [facility] 5 14:09:59 Problem Notes None recorded. Procedures Surgical History Date Name Laterality Status Provider Name and Address Organization Details Recorded Time 4 Date of Last Pap Smear completed [facility] 05/28/2024 12:52:51 0 Breast Biopsy completed [facility] 05/28/2024 12:38:52 3 extraction of wisdom tooth completed [facility] 07/14/2024 10:31:07 9 procedure on urinary bladder completed [facility] 05/28/2024 12:55:50 Imaging Results None recorded. Procedure Notes None recorded. Medical Equipment None [...] lable Not Available Vitals Date Recorded Body height Body mass index (BMI) Body weight Systolic blood pressure Diastolic blood pressure Provider Name and Address Organization Details Last Updated DateTime 09/08/2024 162.56 cm 32.3 kg/m2 67915.37 g 130 mm[Hg] 72 mm[Hg] Irma Michaud [facility] 10:15:22 Date Recorded Body weight Systolic blood pressure Diastolic blood pressure Provider Name and Address Organization Details Last Updated DateTime 09/22/2024 56031.7731 9 g 109 mm[Hg] 73 mm[Hg] Mckenna [facility] 09/22/2024 09:38:21 Date Recorded Body height Body mass index (BMI) Body weight Systolic blood pressure Diastolic blood pressure Provider Name and Address Organization Details Last Updated DateTime 09/25/2024 162.56 cm 31.9 kg/m2 86867.18 g 127 mm[Hg] 85 mm[Hg] Mckenna [facility] 11:26:48 Date Recorded Body weight Body mass index (BMI) Body height Systolic blood pressure Diastolic blood pressure Provider Name and Address Organization Details Last Updated DateTime 10/06/2024 05141.77 319 g 32.1 kg/m2 162.56 cm 118 mm[Hg] 77 mm[Hg] Irma Michaud [facility] 11:58:37 Social History Question Answer Notes LastModified by Organizat ion Details LastModified Time Tobacco Smoking Status Never Smoker Irma Michaud [facility] 05/28/2024 12:46:53 Do You Have An Advance Directive? No [email or web address] Information n ot available 06/02/2024 If You Are , What Was Your Level Of Alcohol Consumption Prior To ? Occasional [email or web address] Information not available 05/28/2024 Are You Blind Or Do You Have Difficulty Seeing? No [email or web address] Information n ot available 05/28/2024 What Is Your Level Of Caffeine Consumption? Occasional [email or web address] Information not available 06/02/2024 How Much Tobacco Do You Chew? None [email or web address] Information not available 06/02/2024 In The 14 Days Before Symptom Onset, Have You Had Close Contact With A Laboratory-confirm ed COVID-19 While That Case Was Ill? No Information n ot available 05/28/2024 In The 14 Days Before Symptom Onset, Have You Had Close Contact With A Person Who Is Under Investigation For COVID-19 While That Person Was Ill? No [email or web address] Information not available 05/28/2024 Have You Been To An Area Known To Be High Risk For COVID-19? No [email or web address] Information not available 05/28/2024 Are You Deaf Or Do You Have Serious Difficulty Hearing? No Information not available 05/28/2024 What Type Of Diet Are You Following? REGULAR [email or web address] Information n ot available 05/28/2024 What Is The Highest Grade Or Level Of School You Have Completed Or The Highest Degree You Have Received? FO85111-0 [email or web address] Information not available 06/02/2024 Are There Any Guns Present In Your Home? Yes [email or web address] Information not available 06/02/2024 Do You Use Protection During Sex? Usually Information not available 06/02/2024 Do You Use Your Seat Belt Or Car Seat Routinely? Yes Information not available 05/28/2024 Do You Have Smoke And Carbon Monoxide Detectors In Your Home? Yes [email or web address] Information not available 05/28/2024 How Much Tobacco Do You Smoke? No [email or web address] Information not available 06/02/2024 Do You Use Sunscreen Routinely? Yes [email or web address] Information not available 05/28/2024 Has Tobacco Cessation Counseling Been Provided? No [email or web address] Information not available 05/28/2024 Have You Used IV Drugs? No [email or web address] Information not available 06/02/2024 Do You Have Difficulty Walking Or Climbing Stairs? No [email or web address] Information not available 05/28/2024 Sex: Unknown Functional Status Question Answer Note LastModified by Organizat ion Details LastModified Time Do you use any illicit or recreational drugs? No Information not available 05/28/2024 Do you or have you ever used any other forms of tobacco or nicotine? No [email or web address] Information not available 05/28/2024 What is your level of alcohol consumption? None [email or web address] Information not available 05/28/2024 Are you able to walk? YESWOREST [email or web address] Information not available 05/28/2024 Are you able to care for yourself? Yes [email or web address] Information n ot available 05/28/2024 What is your occupation? Homemaker [email or web address] Information not available 06/02/2024 Do you have difficulty dressing or bathing? No [email or web address] Information not available 05/28/2024 What is your exercise level? Heavy [email or web address] Information not available 06/02/2024 Mental Status Question Answer Note LastModified by Organization D etails LastModified Time Do you feel stressed (tense, restless, nervous, or anxious, or unable to sleep at night)? UE7079-9 [email or web address] Information not available 06/02/2024 Family History Relationship Description Onset Age of this Age Resolved Age Notes LastModified by Organization Details LastModified Time Maternal Grandmother Diabetes mellitus [email or web address] Not available 2024 12:10:03 Maternal Grandmother Hypertensive disorder Not available 2024 12:10:03 Maternal Grandmother Depressive disorder Not available 2024 12:10:03 Paternal Grandmother Coronary arterioscler osis [email or web address] Not available 2024 12:10:03 Paternal Grandmother Cerebrovascu lar accident [email or web address] Not available 10/2024 12:10:03 Paternal Grandmother Malignant tumor of breast [email or web address] Not available 2024 12:10:03 Father Coronary arterioscler osis [email or web address] Not available 2024 12:10:03 Father Malignant tumor of colon [email or web address] Not available 05/28 12:33:18 Mother Diabetes mellitus [email or web address] Not available 2024 12:10:03 Mother Depressive disorder [email or web address] Not available 2024 12:10:03 Mother Malignant tumor of colon [email or web address] Not available 2024 12:10:03 Maternal Grandfather Cerebrovascu lar accident [email or web address] Not available 10/2024 12:10:03 Maternal Grandfather Malignant neoplastic disease [email or web address] Not available 2024 12:10:03 Maternal Grandfather Hypertensive disorder [email or web address] Not available 2024 12:10:03 Paternal Grandfather Malignant tumor of colon [email or web address] Not available 2024 12:10:03 Medical History Condition Response Allergies (Food, seasonal, environmental ) N Other N Breast Cancer N Drug/Latex Allergies/Reactions N Blood Transfusion N Lung Disease N Dermatologic Disorders N Defects or Inherited Disease N Breast Problem Y Gestational Diabetes N Hematologic disorders N Anesthesia Complications N History of STI N Deep Vein Thrombosis N Polycystic ovary syndrome N Anxiety Disorder Y Autoimmune disease N Arthritis N Polyps N Infertility N History of abnormal pap N Acid Reflux (GERD) N Cancer N Varicosities N Stroke N Neurologic/Epilepsy N Endometriosis N High Cholesterol N Fibromyalgia N Headaches N Kidney Disease N Heart Problems N [...] N Thrombophilias N Gynecological History Statement/Question Response Date of Last Mammogram Flow Moderate Date of LMP 01/11/2024 N Was last menstrual period normal Y STIs/STDs N Date of Last Colonoscopy Desired Control Method Condoms Abnormal Pap N On BCP's at Conception? N HPV Vaccine N Duration of Flow (days) 4 Current Control Method Age at First Child 30 Are cycles usually normal Y Frequency of Cycle (Q days) 27 Sexually Active? Y Menses Monthly Y Date of DEXA bone scan Age of first menstrual cycle 16 Date of Last Pap Smear 05/26/2023 Sexual Problems? N LMP Definite N Obstetrics History GPAL:G 3 P 2 0 0 2 Type Value Full Term 2 Living 2 Total 3 Past Encounters Encounter ID Performer Location Encounter Start Date Encounter Closed Date Diagnosis/Indication Diagnosis SNOMED-CT Code Diagnosis ICD10 Code Diagnosis Note [id number] Jj Cheng MD [place] [address],[place] [address] 06/02/2024 11:15:46 06/02/2024 12:43:10 screening for malformation 224443898 Z36.3 Z3A.20 [id number] PATTIE TAI MD [place] [address],[place] [address] 06/02/2024 11:20:07 06/02/2024 13:54:27 Anxiety in 9813934327 9109 F41.9 - stable on lexapro 20mg Gestation period, 20 weeks 81686177 Z3A.20 [id number] Fern Dickey [facility] [address],[place] [address] 07/14/2024 10:05:33 07/14/2024 11:01:34 [id number] [facility] [address],[place] [address] 07/28/2024 09:04:05 07/28/2024 09:40:43 Gestation period, 28 weeks 77755497 Z3A.28 [id number] Jj Cheng MD [place] [address],[place] [address] 08/11/2024 09:35:03 08/11/2024 10:07:22 care status 470507295 Z34.83 [id number] [facility] [address],[place] [address] 08/25/2024 12:03:41 08/25/2024 13:37:52 Gestation period, 32 weeks 9551406 Z3A.32 [id number] Jj Cheng MD [place] [address],[place] [address] 09/08/2024 09:22:17 09/08/2024 10:06:49 Placenta circumvallata 6390875 O43.119 Z3A.34 [id number] Fern Dickey [facility] [address],[place] [address] 09/08/2024 09:22:30 09/08/2024 11:18:05 Gestation period, 34 weeks 33915668 Z3A.34 [id number] Jj Cheng MD [place] [address],[place] [address] 09/22/2024 09:22:50 09/22/2024 10:11:20 care status 053584048 Z34.83 [id number] Jj Cheng MD [place] [address],[place] [address] 09/25/2024 10:11:34 09/25/2024 12:03:16 care status 829407824 Z34.83 [id number] Fern Dickey [facility] [address],[place] [address] 10/06/2024 11:51:29 10/06/2024 12:11:35 Gestation period, 38 weeks 20593681 Z3A.38 Health Concerns Section Related Observation LastModified by Organization Detai ls LastModified Time None Recorded Concern Status LastModified by Organization Details LastModified Time None Recorded Advance Directives Directive N: Payers Insurance Date Sequence Insurance Name Policy Number Policy Hu Covered Member ID Hu Member ID Guarantor Name 10/09/2024 1 [place] [id number] Robert Olmstead [id number] Tessy Olmstead OBBulmaro Episode Ob Episode Information Episode Created Date Number of Fetuses Patient Bloodtype Patient rh Status Prepregnancy Weight lbs Domestic Partner Domestic Partner Phone Father Name Program Strategist Status 06/02/19 25 1 B Positive 168 OPEN Fetus Data First Name Last Name Admitted to NICU Weight (g) Sex Living Outcome Pediatric Complications Fetus ID Race Codes Race Delivery Type [id number] Problems Problem Notes Problem Name Start Date End Date Resolution Snomed Code Not e Placenta circumvallata 0827882 32wk growth us Stanislav Calculation Initial Stanislav [...] Date Ultra Sound Latest Days Gestation 0 [email or web address] 06/02/2024 10/18/19 25 0 Pre- Flowsheet Flowsheet Date 06/02/2024 Brooks Score Blood [...] Weight in lbs Pre/Post Dialysis Refused Weight 175.169137038252 BP Diastolic BP Location Tested BP Systolic BP Type 72 L arm 118 sitting Fetus Heart Rate Present A Present Fetus Movement A Yes Comments Patient presents [facility] for . Was previously seeing Ruben Wilkes. [...] Weight in lbs Pre/Post Dialysis Refused Weight 181.240202366043 BP Diastolic BP Location Tested BP Systolic [...] Type Weight in lbs Pre/Post Dialysis Refused 186.184379184125 BP Diastolic BP Location Tested BP Systolic [...] Weight in lbs Pre/Post Dialysis Refused Weight 185.605610399596 BP Diastolic BP Location Tested BP Systolic [...] Weight in lbs Pre/Post Dialysis Refused Weight 185.056910537016 BP Diastolic BP Location Tested BP Systolic BP Type 74 136 Fetus Heart Rate Present A 138 Present Fetus Movement A Yes Comments Patient states that is havin g BH contractions. reviewed precautions education, time to call for preadmit, f/u 2 weeks Flowsheet Date 09/08/2024 Brooks Score Blood Edema Fundus Height Fundus Units Glucose Ketones Leukocytes Nitrite Labor Signs Protein Cervic Dilation Cervic Effacement Cervic Station Type Weight in lbs Pre/Post Dialysis Refused BP Diastolic BP Location Tested BP Systolic BP Type Fetus Heart Rate Present Fetus Movement Comments Flowsheet Date 09/08/2024 Brooks Score Blood Edema Fundus Height Fundus Units Glucose Ketones Leukocytes Nitrite Labor Signs Protein Cervic Dilation Cervic Effacement Cervic Station neg none Type Weight in lbs Pre/Post Dialysis Refused Weight 188.429103475112 BP Diastolic BP Location Tested BP Systolic BP Type 72 130 Fetus Heart Rate Present Fetus Movement A Yes Comments Patient states that was in l abor and delivery couple weeks ago with pain and contractions. stopped after couple hours, doing well, +FM, is today efw 40% vtx, OP by miguel, precautions and education. has preadmit scheduled f/u 2 weeks plan gbs Flowsheet Date 09/22/2024 Brooks Score Blood Edema Fundus Height Fundus Units Glucose Ketones Leukocytes Nitrite Labor Signs Protein Cervic Dilation Cervic Effacement Cervic Station Type Weight in lbs Pre/Post Dialysis Refused 187.329829887743 BP Diastolic BP Location Tested BP Systolic BP Type 73 L arm 109 sitting Fetus Heart Rate Present A 142 Present Fetus Movement A Yes Comments done, no problems, no compla ints. Head is still high. Flowsheet Date 09/25/2024 Brooks Score Blood Edema Fundus Height Fundus Units Glucose Ketones Leukocytes Nitrite Labor Signs Protein Cervic Dilation Cervic Effacement Cervic Station Type Weight in lbs Pre/Post Dialysis Refused Weight 186.521773669090 BP Diastolic BP Location Tested BP Systolic BP Type 85 L arm 127 sitting Fetus Heart Rate Present A 147 Present Fetus Movement A Yes Comments no complaints, no problems, routine care, no contractions, no vaginal bleeding, no loss of fluid, no cramping Flowsheet Date 10/06/2024 Brooks Score Blood Edema Fundus Height Fundus Units Glucose Ketones Leukocytes Nitrite Labor Signs Protein Cervic Dilation Cervic Effacement Cervic Station neg trace 37 cm 1cm 60% -3 Type Weight in lbs Pre/Post Dialysis Refused 187.354708352181 BP Diastolic BP Location Tested BP Systolic BP Type 77 118 Fetus Heart Rate Present A 147 Fetus Movement A Yes Comments Patient is having swelling, nausea and vomiting. +FM doing well, precautions and education f/u one week Menstrual History Last Menstrual Date Menses Monthly [...] Domestic Partner Domestic Partner Phone Father Name Program Strategist Status 05/28/19 25 1 CLOSED Fetus Data First Name Last Name Admitted to NICU Weight (g) Sex Living Outcome Pediatric Complications Fetus ID Race Codes Race Delivery Type 3430.06 2704 F Full Term [id number] Vaginal Delivery Stanislav Calculation Initial Stanislav Date [...] Domestic Partner Domestic Partner Phone Father Name Program Strategist Status 05/28/19 25 1 CLOSED Fetus Data First Name Last Name Admitted to NICU Weight (g) Sex Living Outcome Pediatric Complications Fetus ID Race Codes Race Delivery Type 3259.96 5704 F Full Term [id number] Vaginal Delivery Stanislav Calculation Initial Stanislav Date [...]
--- OUTSIDE RECORDS SUMMARY | 2024-10-11 02:20 | XMS_ITS | Clinical Summary ---
Author Organization [facility] Address [address] [address] Care Team Providers Care Coating Machine Operator Name Role Phone Ora Hernandez MD Primary Care Provider [phone] Allergies No known active allergies Medications escitalopram [...] on file Legal Sex Female 11:24 PM WEB PAGE DEVELOPER Gender Identity Not on file Sexual Orientation Not on file Obstetrics History Last Filed Vital Signs Vital Sign Reading Time Taken Comments Blood Pressure 120/78 03/09/2023 3:58 PM WEB PAGE DEVELOPER Pulse 72 03/09/2023 3:58 PM WEB PAGE DEVELOPER Temperature 37.3 C (99.1 F) 03/09/2023 3:58 PM WEB PAGE DEVELOPER Respiratory Rate 18 03/09/2023 3:58 PM WEB PAGE DEVELOPER Oxygen Saturation 98% 03/09/2023 3:58 PM WEB PAGE DEVELOPER Inhaled Oxygen Concentration - - Weight 77.1 kg (170 lb) 03/09/2023 3:58 PM WEB PAGE DEVELOPER Height 162.6 cm (5' 4) 03/09/2023 3:58 PM WEB PAGE DEVELOPER Body Mass Index 29.18 03/09/2023 3:58 PM WEB PAGE DEVELOPER Plan of Treatment Health Maintenance Due Date [...] patient's age to complete this topic Insurance [employer] OPEN ACCESS [employer] OPEN ACCESS [employer] [place] OPEN ACCESS Care Teams Coating Machine Operator Relationship Specialty Start Date End Date Ora Hernandez MD PCP - General 09/15/17
[2024-10-11 02:39] LABS: Basophils Percent Auto 0.3 % (0.2-1.2); Eosinophils Absolute Auto 0.2 K/mm3 (0-0.3); Hematocrit 43.2 % (37.0-47.0); Hemoglobin 14.3 g/dL (12.0-15.0); Immature Granulocyte Absolute 0.05 K/mm3 (0.00-0.031); Immature Granulocyte Percent A 0.3 % (0-0.5); Lymphocytes Absolute Auto 3.12 K/mm3 (0.9-3.2); Lymphocytes Percent Auto 21.8 % (18.3-44.2); Mean Corpuscular HGB Conc 33.1 g/dl (32-36); Mean Corpuscular Hemoglobin 29.3 pg (26-34); Mean Corpuscular Volume 88.5 fl (80-100); Mean Platelet Volume 9.5 fl (7.4-10.4); Monocytes Absolute Auto 0.7 K/mm3 (0.1-0.6); Monocytes Percent Auto 5.1 % (2.6-8.5); Neutrophils Absolute Auto 10.2 K/mm3 (1.3-6.7); Neutrophils Percent Auto 71.5 % (45.5-73.1); Platelet Count Result 246 k/mm3 (150-375); Red Blood Count 4.88 M/mm3 (4.2-5.4); Red Cell Distribution Width 12.3 % (11.5-14.5); White Blood Count 14.3 K/mm3 (4.5-10.0)
--- NOTE | 2024-10-11 02:52 | LDADM ---
This patient, Tessy Olmstead, was admitted to Labor/Delivery/Recovery 103 on 10/11/24 at 01:24. Plans for labor, pain management and were discussed with patient. Patient/family oriented to hospital policies and general routines including ID bracelet, bed and alarms, visiting hours, pain management, procedures, bathroom and other care routines, personal items, smoking policy, room service/diet and guest tray routines, security routines, and visiting hours. Patient/Family are encouraged to report perceived risks to care and to ask questions if they do not understand what they are told or what they should do. See OBIX for further documentation.
--- NOTE | 2024-10-11 03:14 | PM.IMHP ---
H&P: HPI History of Present Illness Date/Time: 10/11/24 03:14 Chief Complaint: contractions Narrative: Patient is a 34 year old at 39w1d who presents for painful contractions starting tonight. She denies leakage of fluid or vaginal bleeding. She has had good movement. Her has been overall uncomplicated. She denies headaches, vision changes, chest pain, dyspnea, RUQ pain or epigastric pain. Review of Systems Review of Systems: All systems reviewed & are unremarkable except as noted in HPI and below PMFSH Past Medical History Medical History (normal spontaneous vaginal delivery) Arrhythmia Obesity and not yet delivered Fibroadenoma Migraine Surgical History Surgical History History of bladder surgery Family History Family History Mother Diabetes mellitus Carcinoma of colon Grandparent Family history of malignant neoplasm of breast Family history of malignant neoplasm of brain Hypertension Leukemia Alzheimer disease Cerebrovascular accident Family history of cardiovascular disease Father Carcinoma of colon, Onset Age: 50 Social History Social History Smoking status: Never smoker Second hand tobacco smoke exposure: No Alcohol intake: never Substance use: never Substance use type: does not use Do You Feel Safe in your Home?: Yes Lack of Transportation: No Lack of Food: Never True Current Housing: I Have Housing Concerned About Future Housing: No Difficulty Paying Gas/Electric Bills: No Difficulty Paying for Meds: No Currently Unemployed: No Education: Master's Degree or Higher Difficulty w/ Childcare or Family Care: No Living arrangements: with family Gender identity (if verbalized by the patient): Female Sexual Orientation (if Verbalized by the Patient): Straight or Heterosexual Spiritual care concerns: No Agree to blood products: Yes Meds Home Medications and Allergies Home Medications ?Medication ?Instructions ?Recorded ?Confirmed ?Type escitalopram oxalate 10 mg tablet 20 mg PO DAILY 08/07/22 09/16/24 History (Lexapro) vit no.95-ferrous 1 tablet PO DAILY 09/16/24 09/16/24 History fumarate 28 mg-folic acid 800 mcg tablet () Allergies Allergy/AdvReac Type Severity Reaction Status Date / Time No Known Allergies Allergy Verified 09/16/24 13:38 Vital Signs Vital Signs - 24 hr 10/11/24 02:31 10/11/24 02:36 10/11/24 02:41 Pulse Rate Blood Pressure Pulse Oximetry 100 100 100 10/11/24 02:41 10/11/24 02:46 10/11/24 02:49 Pulse Rate 99 Blood Pressure 122/63 Pulse Oximetry 100 83 L 10/11/24 02:51 10/11/24 02:56 10/11/24 02:57 Pulse Rate Blood Pressure Pulse Oximetry 100 100 100 10/11/24 02:59 10/11/24 02:59 10/11/24 03:00 Pulse Rate 102 H Blood Pressure 130/74 Pulse Oximetry 100 99 10/11/24 03:04 10/11/24 03:05 10/11/24 03:08 Pulse Rate 96 87 99 Blood Pressure 130/77 137/68 128/58 L Pulse Oximetry 10/11/24 03:10 Pulse Rate 110 H Blood Pressure 108/83 Pulse Oximetry 100 Exam Const: General: comfortable and no acute distress Eyes: General: appearance normal, both eyes and all related structures Resp: Effort & Inspection: normal respiratory effort Cardio: Rate: regular rate Rhythm: regular rhythm : Other: SVE 4/80/-2, AROM performed of meconium stained fluid Skin: General skin exam: normal color Extrem: General: normal to inspection Psych: Mental Status: mental status grossly normal H&P: Results Labs Labs: Short CBC 10/11/24 Range/Units 02:28 WBC 14.3 H (4.5-10.0) K/mm3 Hgb 14.3 (12.0-15.0) g/dL Hct 43.2 (37.0-47.0) % Plt Count 246 (150-375) k/mm3 Assessment and Plan Assessment and plan (1) NST (non-stress test) nonreactive: Code(s): O28.8 - Other abnormal findings on screening of mother Status: Acute Assessment and Plan: - NST nonreactive with variable decels on admission; patient then had 6 min prolonged decel to the 60s that resolved with position changes - FHR recovered well, now 140s with moderate variability - SVE 3cm on admission, recommend augmentation due to nonreactive NST with decels - GBS neg - patient voices understanding - SVE 4/80/-2, AROM performed with meconium stained fluid - continue to monitor FHR closely (2) Irregular contractions: Code(s): O47.9 - False labor, unspecified Status: Acute
[2024-10-11 03:18] LABS: Syphilis IgG/IgM Antibody Non-Reactive (Nonreactive)
--- NOTE | 2024-10-11 03:26 | P.PNAN_ITS ---
Anes - Eval Pre Procedure Procedure: labor epidural Date/Time: 10/11/24 03:26 Surgeon: radha Preop Diagnosis: pain during labor Pre Op Diagnosis: Contractions Patient Data Age: 34 Gender: F Height: Weight: Last Vital Signs Pulse 96 10/11/24 03:25 BP 134/67 10/11/24 03:25 Pulse Ox 100 10/11/24 03:20 Allergies Allergy/AdvReac Type Severity Reaction Status Date / Time No Known Allergies Allergy Verified 09/16/24 13:38 Home Medications ?Medication ?Instructions ?Recorded ?Confirmed ?Type escitalopram oxalate 10 mg tablet 20 mg PO DAILY 08/07/22 09/16/24 History (Lexapro) vit no.95-ferrous 1 tablet PO DAILY 09/16/24 09/16/24 History fumarate 28 mg-folic acid 800 mcg tablet () Laboratory Tests 10/11/24 02:28 WBC 14.3 H K/mm3 (4.5-10.0) RBC 4.88 M/mm3 (4.2-5.4) Hgb 14.3 g/dL (12.0-15.0) Hct 43.2 % (37.0-47.0) MCV 88.5 fl (80-100) MCH 29.3 pg (26-34) MCHC 33.1 g/dl (32-36) RDW 12.3 % (11.5-14.5) Plt Count 246 k/mm3 (150-375) MPV 9.5 fl (7.4-10.4) Immature Gran % (Auto) 0.3 % (0-0.5) Neut % (Auto) 71.5 % (45.5-73.1) Lymph % (Auto) 21.8 % (18.3-44.2) [place] % (Auto) 5.1 % (2.6-8.5) Eos % (Auto) 1.0 % (0-4.4) Baso % (Auto) 0.3 % (0.2-1.2) Lymph # (Auto) 3.12 K/mm3 (0.9-3.2) [place] # (Auto) 0.7 H K/mm3 (0.1-0.6) Eos # (Auto) 0.2 K/mm3 (0-0.3) Baso # (Auto) 0.0 K/mm3 (0.0-0.1) Abs Immat Gran (auto) 0.05 H K/mm3 (0.00-0.031) Absolute Neuts (auto) 10.2 H K/mm3 (1.3-6.7) Absolute Nucleated RBC 0.000 K/mm3 (0.0-0.012) Nucleated RBC % 0.0 % (0.0-0.2) Syphilis IgG/IgM Ab Non-reactive (Nonreactive) HIV 1&2 Ab/P24 Ag 4thGn Pending Blood Type Pending Antibody Screen Pending Patient hx anesthesia problems: none Family hx anesthesia problems: none Results Review: All pre-operative results and documents have been reviewed as part of the pre- operative evaluation. [facility] Past Medical History Medical History (Updated 10/11/24 @ 03:27 by Chloe Leach CRNA) Suicidal ideation after baby 1 Depression (normal spontaneous vaginal delivery) Arrhythmia Obesity and not yet delivered Fibroadenoma Migraine Surgical History Surgical History History of bladder surgery Family History Family History Mother Diabetes mellitus Carcinoma of colon Grandparent Family history of malignant neoplasm of breast Family history of malignant neoplasm of brain Hypertension Leukemia Alzheimer disease Cerebrovascular accident Family history of cardiovascular disease Father Carcinoma of colon, Onset Age: 50 Social History Social History Smoking status: Never smoker Second hand tobacco smoke exposure: No Alcohol intake: never Substance use: never Substance use type: does not use Do You Feel Safe in your Home?: Yes Lack of Transportation: No Lack of Food: Never True Current Housing: I Have Housing Concerned About Future Housing: No Difficulty Paying Gas/Electric Bills: No Difficulty Paying for Meds: No Currently Unemployed: No Education: Master's Degree or Higher Difficulty w/ Childcare or Family Care: No Living arrangements: with family Gender identity (if verbalized by the patient): Female Sexual Orientation (if Verbalized by the Patient): Straight or Heterosexual Spiritual care concerns: No Agree to blood products: Yes Exam Day of Procedure 10/11/24 03:26
[2024-10-11 03:31] LABS: HIV 1/2 Ab P24 Ag Result Negative (Negative)
--- NOTE | 2024-10-11 06:04 | PM.OBPRVD ---
OB - Vaginal Delivery Note Procedure Delivery date: 10/11/24 Events: Other (nonreassuring monitoring) Delivery augmentation: Rupture of Membranes Delivery monitor: External FHT and External Uterine Route of delivery: Episiotomy description: None Laceration Description: Perineal - 1st Degree (hemostatic) Specimen: No Quantitative Blood Loss (ml): 100 Anesthesia type: Epidural Disposition: Floor Complications: No immediate complications Narrative: See H&P and notes for details on patient's admission and labor. She progressed to complete cervical dilation. The patient precipitously delivered the without issue. The umbilical cord was doubly clamped and cut after delayed cord clamping. Care of the infant was then assumed by the nursing staff. I was present for delivery of the placenta which delivered without issue. Baby Date of : 10/11/24 Gestational Age by Date: 39 Infant gender: Male presentation: vertex Placenta delivery description: Expressed and Delivery of Placenta Only Cord Vessel Description: 3 Vessels
[2024-10-11] MEDS: OXYTOCIN 30 UNITS/NS 500 ML 30 UNITS/500 ML BAG 125 UNITS IV CONT (06:32)
--- NOTE | 2024-10-11 08:37 | PC.NURSE ---
Patient transferred to post room #290 via wheelchair. Support person present. Oriented to unit, room, information board, rooming in, admission packet and security measures. Patient verbalizes understanding.
--- NOTE | 2024-10-11 11:00 | PC.NURSE ---
1100: Attempted to assist mother to latch infant. He is very sleepy and does not give any effort to latch. Mom does a great job with hold her breast and positioning baby. He had some meconium fluid deleed after delivery and is still gagging off and on. Mom expressed some drops of colostrum that she placed in his mouth. Encouraged mom to keep him skin to skin after we had attempted for 15 minutes. We will try again in a half hour. RN updated. 1145: Patient has baby skin to skin and he has not stirred or given feeding cues. We woke him with a diaper change and he did root and gave a better effort to latch but we were still unsuccessful. We tried for about 15 minutes and used multiple tricks and positions. He will barely open his mouth and sleeps through attempts to stimulate and wake him. Dad is present and very supportive. Mom was able to express some more drops of colostrum and place them in baby's mouth. Discussed with primary RN that this was all we could get him to do at this time. Because he is a term baby without hypoglycemia risk factors, we will count these drops as his feeding this time. Encouraged mom to try to breastfeed again in two hours or if she notices any feeding cues. Mom is encouraged to call out for assistance at any time. RN updated.
[2024-10-12 04:27] VITALS: BP 107/69; PULSE 83; RESP 16; TEMP 36.9; O2SAT 98
[2024-10-12 05:59] LABS: Hematocrit 37.6 % (37.0-47.0); Hemoglobin 12.6 g/dL (12.0-15.0)
--- NOTE | 2024-10-12 07:33 | WPDANLDPN2 ---
Anes-Prog Note L&D Date/Time: 10/12/24 07:33 Comfortable throughout: labor and delivery Neuraxial method: epidural Epidural/Spinal procedure site: clean & non-tender Neuro status: Neuro function grossly intact. Cardiovascular status: normal Respiratory status: normal Airway patency: baseline Mental status: baseline Post-Op hydration status: normal Vital Signs: Last Vital Signs Temp 36.9 C 10/12/24 04:27 Pulse 83 10/12/24 04:27 Resp 16 10/12/24 04:27 BP 107/69 10/12/24 04:27 Pulse Ox 98 10/12/24 04:27 O2 Del Method Room Air 10/11/24 21:00 Pain score (VAS): 10 I/O: Intake & Output 10/11/24 10/11/24 10/12/24 15:59 23:59 07:59 Intake Total 500 Balance 500 Post-procedural complaints: none Patient feedback: Patient satisfied with anesthetic care.
[2024-10-12 07:35] VITALS: BP 113/69; PULSE 78; RESP 18; TEMP 36.8; O2SAT 100
--- NOTE | 2024-10-12 08:41 | P.PNOB_ITS ---
OB - PN: Subj Subjective Date/time seen: 10/12/24 08:41 Patient comments: no complaints, pain well controlled and tolerating diet OB - PN: Obj Data Labs 10/12/24 04:15 Labs: Laboratory Results - last 24 hr 10/12/24 04:15 Hgb 12.6 Hct 37.6 OB - PN A/P Plan day: 2 Plan: routine care and discharge home Time Spent With Patient Time: Total time spent is greater than 50% in coordination of care (as documented) at patient's floor/unit and/or counseling patient: Exam 2 Const: General: comfortable and no acute distress Resp: Effort & Inspection: normal respiratory effort Auscultation: no rales, no rhonchi and no wheezes Cardio: Rate: regular rate Heart sounds: no click, no murmurs and no rubs GI: GI Palp: Yes Soft to palpation and No Tenderness to palpation present (GI) Auscultation: normal bowel sounds Extrem: General: normal to inspection, no pedal edema and no calf tenderness
--- NOTE | 2024-10-12 08:42 | PM.OBDSVD ---
DS: Admitting Diagnosis Discharge Date 10/12/2024 Admitting Diagnosis Term DS: Discharge Diagnosis Discharge Diagnosis (1) Term delivered: Code(s): O80 - Encounter for full-term uncomplicated delivery Status: Acute OB - DS: Summary OB Procedures : None OB Procedures Intrapartum: Spontaneous Vag Delivery OB Procedures: : None Peripartum Data Laceration Description: Perineal - 1st Degree (hemostatic) Episiotomy description: None Time Spent with Patient Time attestation: Total time spent providing and/or coordinating discharge services: DS: Data Data Completed and Pending Labs on day of discharge: Labs from last 24 hours 10/12/24 04:15 Hgb 12.6 Hct 37.6 Discharge Plan Discharge Discharging Clinician: Jj Cheng Patient Disposition: Home Activity: pelvic rest Diet: regular Patient Instructions: Antibiotic Form Patient Language: Cameroonian Stand Alone Forms: General Discharge Information Follow-up/Referrals: Jj Cheng MD [Physician] - Discharge Medications: Continued escitalopram oxalate [Lexapro] 10 mg tablet 20 mg PO DAILY PNV cmb#95-ferrous fumarate-FA [] 28 mg iron- 800 mcg tablet 1 tablet PO DAILY Date of admission: 10/11/24 01:24 Primary Care Provider: Ora Hernandez Admitting Provider: Jj Cheng Attending physician on admission: Fern Dickey Condition: Stable
[2024-10-12] MEDS: DOCUSATE SODIUM 100 MG CAPSULE PO (08:50)
[2024-10-12] MEDS: ACETAMINOPHEN 325 MG TABLET 650 MG PO (08:50)
--- NOTE | 2024-10-12 11:25 | PC.NURSE ---
Consulted with mother concerning needs and she shared her ability to independently latch infant optimally with minimal with her initial latch but then pain subsides after 30 seconds or so, hydrogel pads given and using lanolin. Mother is feeding appropriately for growth of and understands stimulating infant to eat if needed. Infant has had appropriate feedings in the last 24 hours meets the outcomes for weight, output, blood sugar and jaundice at this time. Reinforced understanding of milk production, transition of milk, signs of adequate intake, transition of stool, prevention/relief of engorgement, plugged ducts, mastitis, responsive watching for feeding cues, the different methods of stimulating to breastfeed 1-3 hours after the start of the last feeding, community resources, and when to call a provider using the resource of the feeding sheet along with the mom and baby guide. Mother voiced understanding of the information shared, is confident to continue effectively her infant at home, when to call for assistance, denies any additional assistance or education at this time. Reported to the Primary RN.
[2024-10-12 20:00] VITALS: BP 119/70; PULSE 76; RESP 20; TEMP 36.3; O2SAT 98
[2024-10-13] MEDS: MEASLES,MUMPS,RUBELLA VACCINE 0.5 ML VIAL SUB-Q (07:30)
[2024-10-13] MEDS: IBUPROFEN 600 MG TABLET PO (07:32)
--- NOTE | 2024-10-13 09:37 | PC.NURSE ---
Patient viewed the discharge video Mother & Baby Care, The First Two Weeks. Patient was given the opportunity and encouraged to ask questions. Patient verbalized understanding of information shared and has been given the mother/baby guide for home reference.
--- NOTE | 2024-10-13 10:46 | P.PNOB_ITS ---
OB - PN: Subj Subjective Date/time seen: 10/13/24 10:46 Interval history: PPD#2 Doing well, pain minimal Tolerating general diet Ready for discharge home today OB - PN: Obj Data Labs 10/12/24 04:15 OB - PN A/P Plan day: 2 Plan: routine care and discharge home Time Spent With Patient Time: Total time spent is greater than 50% in coordination of care (as documented) at patient's floor/unit and/or counseling patient: Review of Systems 2 Review of Systems: All systems reviewed & are unremarkable except as noted in HPI and below Exam 2 Const: General: comfortable and no acute distress O rientation/consciousness: patient oriented x3 Resp: Effort & Inspection: normal respiratory effort
[2024-10-16 14:45] VITALS: BP 126/87; PULSE 78; RESP 18; TEMP 36.8; O2SAT 100
== END 2024-10-13 12:25 | disposition home or self-care (01) | DRG 807 ==
LOC: ANHLDR 02:19 → ANHOB2 08:39
PROVIDERS: Obstetrics & Gynecology; Admitting Provider Obstetrics & Gynecology; PCP Family Medicine; Visit Provider Obstetrics & Gynecology
DX: O36.8330 Maternal care for abnormalities of the fetal heart rate or rhythm, third trimester, not applicable or unspecified (principal); Z37.0 Single live birth; Z3A.39 39 weeks gestation of pregnancy; O69.81X0 Labor and delivery complicated by cord around neck, without compression, not applicable or unspecified; O70.0 First degree perineal laceration during delivery
CPT/HCPCS: 36415; 85014; 85018; 85025; 86593; 86703; 86850; 86900; 86901; 90710; A9270; G0432; J2590